=== PATIENT | female | born 1960 | race Caucasian/White ===

== ENCOUNTER 2018-01-29 10:49 | Outpatient (CLI) | payer MEDICAID, SELFPAY ==
[2018-01-29 12:46] LABS: TSH 1.85 uIU/mL (0.358-3.74)
== END 2018-01-29 11:09 ==
PROVIDERS: PCP Nurse Practitioner Family; Visit Provider Internal Medicine Endocrinology, Diabetes & Metabolism
DX: E05.90 Thyrotoxicosis, unspecified without thyrotoxic crisis or storm (principal)
CPT/HCPCS: 36415; 84443

== ENCOUNTER 2018-02-13 00:21 | Outpatient (CLI) | payer MEDICAID, SELFPAY ==
--- NOTE | 2018-02-13 09:15 | DI.MAMMO_ITS ---
SYMPTOM/DIAGNOSIS: SCREENING, Z12.31 MAMMOGRAM: Mammograms were interpreted according to the usual protocol including computer analysis with CAD system, tomosynthesis and C view imaging. Comparison with prior examinations. The patient is status post right breast biopsy. No suspicious masses or microcalcifications are seen. Breast density B. Skin and axilla are unremarkable. IMPRESSION: No evidence for malignancy. Yearly mammography is recommended. Category 1, breast density B. MQSA ASSESSMENT OF FINDINGS: Negative. Category 1. Patient will receive a letter notifying them of these results. BI-RADS category B. There are scattered areas of fibroglandular density.
== END 2018-02-13 00:41 ==
PROVIDERS: PCP Nurse Practitioner Family; Visit Provider Nurse Practitioner Family
DX: Z12.31 Encounter for screening mammogram for malignant neoplasm of breast (principal)
CPT/HCPCS: 77063; 77067

== ENCOUNTER 2018-03-27 13:49 | Outpatient (CLI) | payer MEDICAID, SELFPAY ==
[2018-03-27 15:08] LABS: TSH 1.61 uIU/mL (0.358-3.74)
== END 2018-03-27 14:09 ==
PROVIDERS: PCP Nurse Practitioner Family; Visit Provider Internal Medicine Endocrinology, Diabetes & Metabolism
DX: E05.90 Thyrotoxicosis, unspecified without thyrotoxic crisis or storm (principal)
CPT/HCPCS: 36415; 84443

== ENCOUNTER 2018-07-15 11:19 | Outpatient (CLI) | payer MEDICAID, SELFPAY ==
[2018-07-15 12:57] LABS: FREE T4 0.89 ng/dL (0.76-1.46); TSH 4.01 uIU/mL (0.358-3.74)
[2018-07-15 21:16] LABS: T3, Total 150 ng/dl (97-169)
[2018-07-20 16:27] LABS: Thyroid Stimulating Immunoglob 2.4 TSI index (<=1.3)
== END 2018-07-15 11:39 ==
PROVIDERS: PCP Nurse Practitioner Family; Visit Provider Internal Medicine Endocrinology, Diabetes & Metabolism
DX: E05.90 Thyrotoxicosis, unspecified without thyrotoxic crisis or storm (principal)
CPT/HCPCS: 36415; 84439; 84443; 84445; 84480

== ENCOUNTER 2018-08-10 13:51 | Outpatient (CLI) | payer MEDICAID, SELFPAY ==
[2018-08-10 15:34] LABS: FREE T4 0.79 ng/dL (0.76-1.46); TSH 1.85 uIU/mL (0.358-3.74)
[2018-08-11 18:07] LABS: T3, Total 119 ng/dl (97-169)
[2018-08-13 16:53] LABS: Thyroid Stimulating Immunoglob 2.6 TSI index (<=1.3)
== END 2018-08-10 14:11 ==
PROVIDERS: PCP Nurse Practitioner Family; Visit Provider Internal Medicine Endocrinology, Diabetes & Metabolism
DX: E05.90 Thyrotoxicosis, unspecified without thyrotoxic crisis or storm (principal)
CPT/HCPCS: 36415; 84439; 84443; 84445; 84480

== ENCOUNTER 2018-08-28 13:42 | Outpatient (CLI) | payer MEDICAID, SELFPAY ==
[2018-08-28 15:21] LABS: ALT 20 U/L (12-78); AST 20 U/L (15-37); FREE T4 0.86 ng/dL (0.76-1.46); TSH 2.18 uIU/mL (0.358-3.74)
[2018-08-28 21:56] LABS: T3, Total 130 ng/dl (97-169)
== END 2018-08-28 14:02 ==
PROVIDERS: PCP Nurse Practitioner Family; Visit Provider Internal Medicine Endocrinology, Diabetes & Metabolism
DX: T50.905A Adverse effect of unspecified drugs, medicaments and biological substances, initial encounter (principal); E05.90 Thyrotoxicosis, unspecified without thyrotoxic crisis or storm
CPT/HCPCS: 36415; 84439; 84443; 84450; 84460; 84480

== ENCOUNTER 2018-09-11 15:43 | Outpatient (CLI) | payer MEDICAID, SELFPAY ==
[2018-09-11 17:22] LABS: ALT 23 U/L (12-78); AST 17 U/L (15-37); FREE T4 0.87 ng/dL (0.76-1.46); TSH 2.06 uIU/mL (0.358-3.74)
[2018-09-13 17:30] LABS: T3, Total 113 ng/dl (97-169)
== END 2018-09-11 16:03 ==
PROVIDERS: PCP Nurse Practitioner Family; Visit Provider Internal Medicine Endocrinology, Diabetes & Metabolism
DX: E05.90 Thyrotoxicosis, unspecified without thyrotoxic crisis or storm (principal); T50.905A Adverse effect of unspecified drugs, medicaments and biological substances, initial encounter
CPT/HCPCS: 36415; 84439; 84443; 84450; 84460; 84480

== ENCOUNTER 2018-11-20 11:24 | Outpatient (REF) | payer MEDICAID, SELFPAY ==
--- NOTE | 2018-11-20 10:15 | PAPFT_PTH ---
PATIENT: Rosaura Blair LOC: [facility] U#:[id number] AGE/SX: 58/F ROOM: RE11/20/[address]: Rosemary Duran APRN : 1960 BED: DIS: 11/20/2018 SPEC #: [id number] RECD: 11/23/18 12:52 STATUS: RASHAWN REQ #: [id number] BIANCA: 11/20/18 10:[address]: Rosemary Duran DEPT: [facility] Cytology RECD BY: Christen Bee Tissues: 1 - CX/ENDOCX FOR PAP SMEARS Procedures: PAP THIN PREP/UVM Screening HPV DNA PROBE Comments: [id number]
== END 2018-11-20 11:44 ==
LOC: LBN 11:24
PROVIDERS: PCP Nurse Practitioner Family; Visit Provider Nurse Practitioner Family
DX: Z12.4 Encounter for screening for malignant neoplasm of cervix (principal); Z11.51 Encounter for screening for human papillomavirus (HPV)
CPT/HCPCS: 88142; 87624

== ENCOUNTER 2018-11-24 10:20 | Outpatient (CLI) | payer MEDICAID, SELFPAY ==
[2018-11-24 11:29] LABS: BUN 11 mg/dL (7-18); CREATININE 0.85 mg/dL (0.55-1.02); Calcium 8.8 mg/dL (8.5-10.1); Chloride 108 mmol/L (98-107); Glucose 97 mg/dL (70-100); Potassium 4.3 mmol/L (3.5-5.1); Sodium 144 mmol/L (136-145)
[2018-11-25 10:09] LABS: HIV-1/2 Ag & Ab Screen Negative (NEGAT)
[2018-11-25 10:15] LABS: Hepatitis C Ab w Rflx HCV PCR Negative (NEGAT)
== END 2018-11-24 10:40 ==
PROVIDERS: PCP Nurse Practitioner Family; Visit Provider Nurse Practitioner Family
DX: Z11.4 Encounter for screening for human immunodeficiency virus [HIV] (principal); Z13.1 Encounter for screening for diabetes mellitus; Z11.59 Encounter for screening for other viral diseases
CPT/HCPCS: 36415; 80048; 86803; 87389

== ENCOUNTER 2018-12-12 11:30 | Emergency (ER) | payer MEDICAID, SELFPAY ==
[2018-12-12 11:35] VITALS: BP 144/62; PULSE 56; RESP 16; TEMP 36.7; O2SAT 97
--- NOTE | 2018-12-12 11:35 | ED.GENADUL_ITS ---
Discharge Plan Disposition Patient Disposition: HOME Condition: Stable Discharge Details Chief Complaint: Urinary Clinical Impression: Cystitis Primary Care Provider: Rosemary Duran ED Provider: Bart Driver Home Meds and New Rx's Prescriptions: New nitrofurantoin monohyd/m-cryst [Macrobid] 100 mg capsule 100 mg PO BID Qty: 10 RF: 0 Continued trazodone 50 MG tablet 50 mg PO HS PRNQty: 90 RF: 3 cholecalciferol (vitamin D3) [Vitamin D3] 2,000 UNIT tablet 2,000 unit PO DAILY Qty: 90 RF: 3 atenolol 50 mg tablet 75 mg PO as directed Qty: 360 RF: 3 citalopram 20 mg tablet 20 mg PO DAILY Qty: 90 RF: 3 Discharge Instructions Instructions: Urinary Tract Infection in Women (ED) Medical Decision Making 58 yo female comes in with complaints of blood tinged urine and burning with urination since yesterday. Denies fevers, chills, vomit, abdominal pain or back pain and has no cva tenderness. She appears well systemically in no distress. Her symptoms and UA are consistent with uti, no findings on exam or hx to suggest pyelo or sepsis. Will tx with macrobid and return precautions given Differential Diagnosis uti, cystitis HPI General Mode of arrival: ambulatory . Date/Time Provider Initiated Documentation: 12/12/18 11:31 . Limitations to Documentation: no limitations . Information obtained by: patient . History of Present Illness 58 year old F presents to the emergency department with the chief complaint of bloody urine, described as moderate, Patient started experiencing this day(s) (1) and it has been constant. No relieving factors improve symptom(s), No exacerbating factors reported . Patient did receive the following treatments prior to arrival, none Related Data Home Medications Medication Instructions Recorded Confirmed cholecalciferol (vitamin D3) 2,000 unit PO DAILY #90 tab-cap 10/24/17 12/12/18 [Vitamin D3] trazodone 50 mg PO HS PRN #90 tab-cap 10/24/17 12/12/18 atenolol 50 mg tablet 75 mg PO as directed #360 tab 02/20/18 12/12/18 citalopram 20 mg tablet 20 mg PO DAILY #90 tab-cap 04/27/18 12/12/18 nitrofurantoin monohyd/m-cryst 100 mg PO BID #10 cap 12/12/18 [Macrobid] Previous Rx's Medication Instructions Recorded cholecalciferol (vitamin D3) 2,000 unit PO DAILY #90 tab-cap 10/24/17 [Vitamin D3] atenolol 50 mg tablet 75 mg PO as directed #360 tab 02/20/18 citalopram 20 mg tablet 20 mg PO DAILY #90 tab-cap 04/27/18 nitrofurantoin monohyd/m-cryst 100 mg PO BID #10 cap 12/12/18 [Macrobid] Allergies Allergy/AdvReac Type Severity Reaction Status Date / Time Penicillins Allergy Unknown swelling & Unverified 12/12/18 11:39 hives verapamil Allergy Unknown rash Unverified 12/12/18 11:39 Sulfa (Sulfonamide AdvReac Unknown sweating, Unverified 12/12/18 11:39 Antibiotics) vomiting Review of Systems Review of Systems All systems reviewed & are unremarkable except as noted in HPI and below Constitutional Denies chills, Denies fever(s) and Denies weakness ENT Denies change in voice Cardiovascular Denies chest pain and Denies dyspnea Respiratory Denies dyspnea Gastrointestinal Denies abdominal pain, Denies nausea and Denies vomiting Neurologic Denies weakness [facility] Medical History (Updated 11/20/18 @ 10:05 by Rosemary Duran NP) Abnormal Pap smear of cervix (Resolved) Bilateral carpal tunnel syndrome (Chronic 11/07/15) Depressive disorder (Chronic 07/30/12) Dyslipidemia (Chronic 08/09/15) Herpes (Chronic) Hyperthyroidism (Chronic 10/24/17) Insomnia (Chronic 08/08/11) EVIN (obstructive sleep apnea) (Chronic) Other specified cardiac dysrhythmias (Chronic 08/08/11) Restless legs (Chronic 11/10/12) Subclinical hypothyroidism (Resolved 12/09/12) Tobacco use disorder (Chronic 10/30/11) Vitamin D deficiency (Chronic 08/04/17) Surgical History (Updated 11/20/18 @ 09:52 by Rosemary Duran NP) Breast, Lumpectomy (Resolved) Carpal Tunnel Release, Right (Resolved) Colonoscopy - MAC (Resolved 11/27/16) Cone Biopsy (Resolved) Excision, Distal Clavicle (Resolved 07/12/15) Rotator Cuff Repair (Resolved 06/24/16) Family History Mother Diabetes Essential hypertension Hyperlipidemia Breast cancer Father Alzheimer disease Stroke Colon cancer Sister Thyroid disease Brother Hyperlipidemia Social History (Updated 11/20/18 @ 10:01 by Rosemary Duran NP) Smoking/Tobacco Use Status: Current-Occasional Tobacco Type: cigarettes Alcohol Intake: current Alcohol Intake frequency: holidays/special occasions only Drug use: Rarely Substance use type: marijuana Details: MJ Caregiver/Support person: No Household members: spouse Number of Children: 5 Communication Needs: None 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 Pets and animals: Yes Pets and animals: cat(s), dog(s), horse(s) and farm animals Sexually active: Yes Current gender identity: female What type of physical activity do you participate in: walking and other Details: Rides horses, farm activities Frequency: daily Seatbelt use: always Helmet use: Yes Drive intox or ride w/intox clamp truck driver: No Water heater temp set <120 deg: Yes Working smoke detector in home: Yes Fire extinguisher in home: Yes Carbon monox detector in home: Yes Firearms in home: Yes Firearms unloaded and locked: Yes Do you feel safe at home: Yes Do you feel safe in your relationship?: Yes Female Reproductive History Menstrual Menopause type: natural (LMP 06/2017) Exam Const General: no acute distress Orientation: alert HENMT Head: normal to inspection Ears: external ears normal General nose exam: external nose normal Mouth: moist mucous membranes Eyes General: appearance normal, both eyes and all related structures Neck Neck: normal visual inspection Resp Effort & Inspection: normal respiratory effort and able to speak in complete sentences Cardio Rate: regular rate Skin General skin exam: no rashes or lesions noted Neuro General: alert and oriented x3 Extrem General: normal to inspection Psych Mental Status: mental status grossly normal
[2018-12-12 11:39] LABS: Bilirubin Negative (Negative); Blood Large (Negative); Clarity Clear (Clear); Glucose Negative (Negative); Ketones Negative (Negative); Leukocyte Esterase Small (Negative); Nitrite Negative (Negative); Urobilinogen 0.2 EU/dL (Up TO 0.2); pH 6.5 (5-8)
[2018-12-12 11:47] LABS: Bacteria Few HPF (Negative); C & S Indicated? Yes; Casts Negative LPF (Negative); Crystals Negative HPF (Negative); Epithelial Cells Rare HPF (Negative); Mucus Trace (Negative); Other Cells Few Renal (Negative); WBC >50 HPF (0-5)
== END 2018-12-12 12:00 | disposition home or self-care (01) ==
PROVIDERS: Emergency Provider Emergency Medicine; PCP Nurse Practitioner Family
DX: N30.01 Acute cystitis with hematuria (principal)
CPT/HCPCS: 99283; 81003; 81015; 87086

== ENCOUNTER 2018-12-14 10:59 | Outpatient (CLI) | payer MEDICAID, SELFPAY ==
[2018-12-14 13:25] LABS: FREE T4 0.94 ng/dL (0.76-1.46); TSH 1.96 uIU/mL (0.36-3.74)
[2018-12-14 21:01] LABS: T3, Total 138 ng/dl (97-169)
== END 2018-12-14 11:19 ==
PROVIDERS: PCP Nurse Practitioner Family; Visit Provider Internal Medicine Endocrinology, Diabetes & Metabolism
DX: E05.00 Thyrotoxicosis with diffuse goiter without thyrotoxic crisis or storm (principal)
CPT/HCPCS: 36415; 84439; 84443; 84480

== ENCOUNTER 2019-02-15 00:54 | Outpatient (CLI) | payer MEDICAID, SELFPAY ==
--- NOTE | 2019-02-15 09:05 | DI.MAMMO_ITS ---
EXAM: MG MAMMO SCREENING CLINICAL HISTORY: screening Z12.31. TECHNIQUE: Bilateral full field digital CC and MLO mammographic images were obtained with 3D tomosyn thesis and utilizing computer aided detection (CAD). COMPARISON: There are multiple priors with the most recent from 02/08/2018. FINDINGS: Masses/Architectural Distortion: There is a focal asymmetric density in the upper central left breast seen on the mediolateral oblique view. This area should be further evaluated with a spot compressio n view and ultrasound. No other suspicious masses or microcalcifications are seen. Microcalcifications: No suspicious pleomorphic-type are seen. Breast Density - Category B - Scattered areas of fibroglandular density IMPRESSION: 1. Focal asymmetric density in the upper central left breast as seen on the mediolateral oblique view . Additional views are requested as described above. BI-RADS Cat 0 - Assessment Incomplete: Need additional imaging evaluation A negative radiographic report should not delay biopsy if a dominant or clinically suspicious mass is present. Up to ten percent of cancers are not identified on mammography. A negative report may reinforce clinical impression. Adenosis and dense breasts may obscure an underlying neoplasm. False positive reports average 6 to 10%. BI-RADS Cat 0 - Assessment Incomplete: Need additional imaging evaluation BI-RADS Cat 0 - Assessment Incomplete: Need additional imaging evaluation
== END 2019-02-15 01:14 ==
PROVIDERS: PCP Nurse Practitioner Family; Visit Provider Nurse Practitioner Family
DX: Z12.31 Encounter for screening mammogram for malignant neoplasm of breast (principal); R92.8 Other abnormal and inconclusive findings on diagnostic imaging of breast
CPT/HCPCS: 77063; 77067

== ENCOUNTER 2019-03-11 01:06 | Outpatient (CLI) | payer MEDICAID, SELFPAY ==
--- NOTE | 2019-03-11 14:52 | DI.MAMMO_ITS ---
EXAM: MG MAMMO SCREEN CALL BACK UNI AND US BREAST LT LIMITED CLINICAL HISTORY: F/U MAMMO/SPOTS, ASYMMETRIC DENSITY UPPER CENTRAL LT BREAST TECHNIQUE: Additional images are interpreted according to the usual protocol including tomosynthesis and 2D imaging. Ultrasound performed using standard protocol. COMPARISON: MG MAMMO SCREENING 02/15/19 FINDINGS: Additional mammographic views of the left breast and left breast ultrasound are interpreted conjuncti on. These examinations were obtained to evaluate questionable area of asymmetric density seen on rec ent screening mammogram in the left breast. Additional mammographic views fail to show a discrete ma ss. Breast ultrasound shows no evidence of a mass or cyst. IMPRESSION: No specific evidence of malignancy at this time. Follow-up unilateral left breast mammogram recommend ed in 6 months. Category 3, breast density category B. BI-RADS Cat 3 - 6 month - Probably Benign Finding: Recommend follow-up mammography in 6 months Breast Density - Category B - Scattered areas of fibroglandular density
== END 2019-03-11 01:26 ==
PROVIDERS: PCP Nurse Practitioner Family; Visit Provider Nurse Practitioner Family
DX: Z12.31 Encounter for screening mammogram for malignant neoplasm of breast (principal); R92.8 Other abnormal and inconclusive findings on diagnostic imaging of breast; N64.59 Other signs and symptoms in breast
CPT/HCPCS: 76642; 77063; 77067

== ENCOUNTER 2019-04-22 14:56 | Outpatient (CLI) | payer MEDICAID, SELFPAY ==
[2019-04-22 16:17] LABS: TSH 2.79 uIU/mL (0.36-3.74)
[2019-04-23 21:20] LABS: T3, Total 140 ng/dL (97-169)
== END 2019-04-22 15:16 ==
PROVIDERS: PCP Nurse Practitioner Family; Visit Provider Internal Medicine Endocrinology, Diabetes & Metabolism
DX: E05.00 Thyrotoxicosis with diffuse goiter without thyrotoxic crisis or storm (principal)
CPT/HCPCS: 36415; 84439; 84443; 84480

== ENCOUNTER 2019-11-09 00:27 | Outpatient (CLI) | payer MEDICAID, SELFPAY ==
--- NOTE | 2019-11-09 09:40 | DI.MAMMO_ITS ---
EXAM: MG MAMMO DIAGNOSTIC UNI CLINICAL HISTORY: abnormal mammo - 6 month follow up,R92.8 TECHNIQUE: Mammograms were interpreted according to the usual protocol including computer analysis w [employer] CAD system, tomosynthesis and C-view imaging. COMPARISON: FINDINGS: Today's left breast mammogram was obtained to follow questionable area of asymmetric density seen on prior mammogram of February 2019. Findings are less prominent on today's examination. No new mass or clumped microcalcification seen. IMPRESSION: No specific evidence of malignancy at this time. I would suggest that routine screening examinations resume with a bilateral mammogram in 6 months. BI-RADS Category 3 - 6 month - Probably Benign Finding: Recommend follow-up mammography in 6 months Breast Density - Category B - Scattered areas of fibroglandular density
== END 2019-11-09 00:47 ==
PROVIDERS: PCP Nurse Practitioner Family; Visit Provider Nurse Practitioner Family
DX: Z12.31 Encounter for screening mammogram for malignant neoplasm of breast (principal); R92.8 Other abnormal and inconclusive findings on diagnostic imaging of breast; N64.59 Other signs and symptoms in breast
CPT/HCPCS: 77061; 77065; G0279

== ENCOUNTER 2019-12-02 02:42 | Outpatient (CLI) | payer MEDICAID, SELFPAY ==
[2019-12-02 13:55] LABS: FREE T4 0.91 ng/dL (0.76-1.46); TSH 1.43 uIU/mL (0.36-3.74)
[2019-12-02 22:12] LABS: T3, Total 118 ng/dL (97-169)
[2019-12-07 15:01] LABS: Thyroid Stimulating Immunoglob 1.4 TSI index (<=1.3)
== END 2019-12-02 03:02 ==
PROVIDERS: PCP Nurse Practitioner Family; Visit Provider Internal Medicine Endocrinology, Diabetes & Metabolism
DX: E05.00 Thyrotoxicosis with diffuse goiter without thyrotoxic crisis or storm (principal)
CPT/HCPCS: 36415; 84439; 84443; 84445; 84480

== ENCOUNTER 2019-12-30 00:43 | Outpatient (CLI) | payer MEDICAID, SELFPAY ==
--- NOTE | 2019-12-30 06:30 | DI.US_ITS ---
EXAM: US UPPER EXTREMITY VENOUS RT CLINICAL HISTORY: assess soft tissue, blood vessels of RUE ecchy pain rt arm,m79.601,r58,?DVt. TECHNIQUE: Ultrasound examination of the right upper extremity venous system(s) is performed using g rayscale, color-flow, and spectral Doppler analysis. COMPARISON: No exams were available for comparison FINDINGS: The right internal jugular, axillary, subclavian, cephalic, basilic and brachial veins are patent wit hout evidence of thrombosis. IMPRESSION: No DVT. DATA REPOSITORY:
== END 2019-12-30 01:03 ==
PROVIDERS: PCP Nurse Practitioner Family; Visit Provider Nurse Practitioner Adult Health
DX: M79.601 Pain in right arm (principal)
CPT/HCPCS: 93971

== ENCOUNTER 2020-08-17 16:12 | Outpatient (CLI) | payer MEDICAID, SELFPAY ==
--- NOTE | 2020-08-17 16:00 | RT.EKG_ITS ---
APPROVED REPORT Exam: Resting ECG Patient Location: O HR:53 bpm ECG Measurements Heart Rate 53 AXIS NJ 66 P 0 QRSd 90 QRS 17 QT 439 T 29 QTc 412 Conclusion Sinus bradycardia...rate< 60
== END 2020-08-17 16:13 | disposition home or self-care (01) ==
LOC: DI.KIM 16:14
PROVIDERS: PCP Nurse Practitioner Family; Visit Provider Nurse Practitioner Family
DX: R07.9 Chest pain, unspecified (principal)
CPT/HCPCS: 93010

== ENCOUNTER 2020-08-22 00:48 | Outpatient (CLI) | payer MEDICAID, SELFPAY ==
--- NOTE | 2020-08-22 14:00 | ETT_ITS ---
APPROVED REPORT Exam: Exercise Treadmill Patient Location: Out-Patient Room/Bed: Stress Nurse: Pamela Morales RN Ordering Provider:KINGS GENAO, Contact Number: [phone] BMI: 27.45 Baseline Rhythm: Sinus Rhythm Comment: period of irregular rate Indications: ATYPICAL CHEST PAIN Medical History Medical History: Depression, EVIN, HLD, Hyperthyroidism, SVT, Tobacco use, Elevated blood pressure (re cent) Cardiac Medications: Aspirin, Atenolol Allergies: Sulf antibotics, Penicillins, Verapamil Cardiac Risk Factors: Hyperlipidemia, Smoking (former) Previous Cardiac Procedures: Ablation (1997) Pretest Chest Pain Characteristics: No chest pain Exercise History: Sedentary Physical Disabilities: None. Lung Sounds: Clear to auscultation Heart Sounds: Regular Stress Test Details Test: Exercise stress testing was performed using a Michael protocol. Rest Stress HR Resting HR Supine: 100 bpm Max Heart Rate (APMHR): 162 bpm Resting HR Standin bpm Target HR (85% APMHR): 137 bpm Max HR Achieved: 200 bpm % of APMHR: 123 Recovery HR: 67 bpm HR response to stress: Normal HR response to stress BP Resting BP Supine: 126/72 mmHg Resting BP Standin/80 mmHg Max BP: 192/64 mmHg Recovery BP: 134/70 mmHg BP response to stress: Normal blood pressure response to stress. ECG Resting ECG: Sinus Rhythm Ectopy: PACs Stress ECG: Sinus Tachycardia ST Change: No significant ST segment changes noted Arrhythmia: PAC Recovery ECG: Sinus Rhythm Recovery ST Change: No significant ST segment changes noted Recovery Arrhythmia: SVT, PVCs, PACs, PAC couplet Comment: 10 sec of SVT in recovery period, asymptomatic. Clinical Reason for Termination: Fatigue Stress Symptoms: General Fatigue Exercise duration: 12 min20 sec Highest Stage Reached: Stage 5: 5.0 mph at 18% grade. Exercise capacity: 13.71 METs Bell Treadmill Score: 11 Rate Pressure Product: [id number] Stress ECG Conclusion 1. The patient exercised for 12 minutes (14 METS). Exercise was stopped due to fatigue. 2. The patient no symptoms suggestive of ischemia. Heart rate and blood pressure augmented appropria tely. 3. There is no evidence of ischemia on ECG portion of the exam. Bell Treadmill Score is 11 which is Low risk. Stress Test Summary STAGE Time (mins) Speed (mph) Grade (%) HR BP SYMPTOMS METS Supine 100 126/72 Standing 65 132/80 1 3 1.7 10 87 154/70 4.6 2 6 2.5 12 104 162/68 7 3 9 3.4 14 119 176/68 10.2 4 12 4.2 16 143 12.9 1 min recovery 112 192/64 3 min recovery 77 170/68 6 min recovery 67 134/80 10 second episode of SVT within first minute of recovery period. Patient asymptomatic during this julián e. SVT resolved spontaneously.
== END 2020-08-22 01:08 ==
PROVIDERS: PCP Nurse Practitioner Family; Visit Provider Nurse Practitioner Family
DX: R07.89 Other chest pain (principal); E78.5 Hyperlipidemia, unspecified; Z87.891 Personal history of nicotine dependence; I47.1 Supraventricular tachycardia
CPT/HCPCS: 93017

== ENCOUNTER 2020-08-22 02:04 | Outpatient (CLI) | payer MEDICAID, SELFPAY ==
--- NOTE | 2020-08-22 12:38 | DI.MAMMO_ITS ---
EXAM: MG MAMMO SCREENING CLINICAL HISTORY: screening,z12.39 TECHNIQUE: Mammograms were interpreted according to the usual protocol including computer analysis w [employer] CAD system, tomosynthesis and C-view imaging. COMPARISON: FINDINGS: The breasts are of moderate density with fairly symmetrical distribution of fibroglandular tissue. N o dominant mass or clumped microcalcification is identified in either breast. The current examinatio n is compared with previous examinations including February 2019 and there has been no gross interval change in appearance in comparison with the prior studies. IMPRESSION: No specific evidence of malignancy at this time. Routine screening examinations are suggested at yea rly intervals due to the family history of breast carcinoma. BI-RADS Category 1 - Negative Breast Density - Category B - Scattered areas of fibroglandular density
--- NOTE | 2020-08-22 12:45 | DI.RAD_ITS ---
EXAM: XR CHEST 2V PA LATERAL CLINICAL HISTORY: sternal pain, r/o cardiopulm abnormality,r07.9 TECHNIQUE: 2D digital imaging was performed. COMPARISON: CR CHEST 2 VIEWS PA,LAT from 07/05/2017 FINDINGS: The heart is not enlarged. The lungs are clear and well expanded. No pleural effusion seen. Mediastin al contours appear intact. IMPRESSION: Normal chest. RADIATION DOSE DELIVERED: Total DLP
== END 2020-08-22 02:24 ==
PROVIDERS: PCP Nurse Practitioner Family; Visit Provider Nurse Practitioner Family
DX: R07.9 Chest pain, unspecified (principal); Z12.31 Encounter for screening mammogram for malignant neoplasm of breast; Z80.3 Family history of malignant neoplasm of breast
CPT/HCPCS: 77063; 77067; 71046

== ENCOUNTER 2020-08-22 04:11 | Outpatient (CLI) | payer MEDICAID, SELFPAY ==
[2020-08-22 09:40] LABS: Anion Gap 12.3 mmol/L (3-11); BUN 18 mg/dL (7-18); CO2 26.7 mmol/L (21.0-32.0); Calcium 8.8 mg/dL (8.5-10.1); Calculated LDL 149 mg/dL (<100); Chloride 107 mmol/L (98-107); Cholesterol 207 mg/dL (<200); Estimated GFR 56.95 (mL/min/1.73m2); Glucose 94 mg/dL (74-106); HDL Cholesterol 43 mg/dL (40-60); Potassium 4.8 mmol/L (3.5-5.1); Sodium 146 mmol/L (136-145); TSH 4.09 uIU/mL (0.36-3.74); Triglyceride 75 mg/dL (<150)
[2020-08-22 17:20] LABS: T3, Total 166 ng/dL (97-169)
[2020-08-29 15:11] LABS: Thyroid Stimulating Immunoglob <1.0 TSI index (<=1.3)
== END 2020-08-22 04:12 | disposition home or self-care (01) ==
LOC: LBO 04:11
PROVIDERS: PCP Nurse Practitioner Family; Visit Provider Nurse Practitioner Family
DX: E05.90 Thyrotoxicosis, unspecified without thyrotoxic crisis or storm (principal); E78.5 Hyperlipidemia, unspecified; Z13.1 Encounter for screening for diabetes mellitus
CPT/HCPCS: 36415; 80048; 80061; 84439; 84443; 84445; 84480

== ENCOUNTER 2021-03-14 04:34 | Outpatient (CLI) | payer MEDICAID, SELFPAY ==
[2021-03-14 08:59] LABS: TSH (W/Ref FT4) 3.21 uIU/mL (0.36-3.74)
== END 2021-03-14 04:35 | disposition home or self-care (01) ==
LOC: LBO 04:34
PROVIDERS: PCP Nurse Practitioner Family; Visit Provider Nurse Practitioner Family
DX: L85.3 Xerosis cutis (principal); L98.8 Other specified disorders of the skin and subcutaneous tissue; Z86.39 Personal history of other endocrine, nutritional and metabolic disease
CPT/HCPCS: 36415; 84443

== ENCOUNTER 2021-10-02 03:30 | Outpatient (CLI) | payer MEDICAID, SELFPAY ==
--- NOTE | 2021-11-05 14:59 | ZIOP_ITS ---
Date of service: 11/05/21 Time of Service: 15:00 14 Day [employer] Referring Provider:: Thiago Indications:: Palps Note: This is a 14-day monitor ordered for the indication of palpitations ? The patient was in normal sinus rhythm for the during the recording with an average heart rate of 55 bpm. ? There were rare PACs and rare PVCs. ? There were 25 brief runs of SVT with the longest lasting 11 beats. None of these were reported as symptomatic. ? There were no episodes of atrial fibrillation, no pauses greater than 3 seconds and no evidence of high degree heart block. ? There were 6 patient triggered events 4 of which were associated with PACs and the others with sinus rhythm
== END 2021-10-02 03:31 | disposition home or self-care (01) ==
LOC: RT 03:30
PROVIDERS: PCP Nurse Practitioner Family; Visit Provider Internal Medicine Cardiovascular Disease
DX: I47.1 Supraventricular tachycardia (principal); R00.2 Palpitations
CPT/HCPCS: 93246

== ENCOUNTER 2021-10-10 04:23 | Outpatient (CLI) | payer MEDICAID, SELFPAY ==
[2021-10-10 10:26] LABS: Anion Gap 10.7 mmol/L (3-11); BUN 16 mg/dL (7-18); CO2 28.3 mmol/L (21.0-32.0); CREATININE 1.1 mg/dL (0.55-1.02); Calcium 8.9 mg/dL (8.5-10.1); Chloride 106 mmol/L (98-107); Estimated GFR 50.84 (mL/min/1.73m2); FREE T4 0.91 ng/dL (0.76-1.46); Glucose 93 mg/dL (74-106); Potassium 4.8 mmol/L (3.5-5.1); Sodium 145 mmol/L (136-145); TSH 2.38 uIU/mL (0.36-3.74)
== END 2021-10-10 04:24 | disposition home or self-care (01) ==
LOC: LBO 04:23
PROVIDERS: PCP Nurse Practitioner Family; Visit Provider Nurse Practitioner Family
DX: Z86.39 Personal history of other endocrine, nutritional and metabolic disease (principal); Z13.1 Encounter for screening for diabetes mellitus
CPT/HCPCS: 36415; 80048; 84439; 84443

== ENCOUNTER → 2021-10-17 03:14 | Outpatient (CLI) | payer MEDICAID, SELFPAY ==
--- NOTE | 2021-10-17 12:32 | DI.MAMMO_ITS ---
Exam(s) MAMMO SCREENING EXAM: MAMMO SCREENING CLINICAL HISTORY: screening,z12.39 TECHNIQUE: Mammograms were interpreted according to the usual protocol including computer analysis w [employer] CAD system, tomosynthesis and C-view imaging. COMPARISON: FINDINGS: The breasts are of moderate density with fairly symmetrical distribution of fibroglandular tissue. N o dominant mass or clumped microcalcification is identified in either breast. Current examination is compared with previous examinations including August 2020 and there has been no gross interval change in appearance in comparison with the prior studies. IMPRESSION: No specific evidence of malignancy at this time. Routine screening examinations are suggested at ye demarco intervals due to the family history of breast carcinoma. BI-RADS Category 1 - Negative Density Breast Density - Category B - Scattered areas of fibroglandular density
== END ==
PROVIDERS: PCP Nurse Practitioner Family; Visit Provider Nurse Practitioner Family
DX: Z12.31 Encounter for screening mammogram for malignant neoplasm of breast (principal); Z80.3 Family history of malignant neoplasm of breast
CPT/HCPCS: 77063; 77067

== ENCOUNTER 2021-10-17 04:06 | Outpatient (CLI) | payer MEDICAID, SELFPAY ==
[2021-10-17 13:43] LABS: Bilirubin Negative (Negative); Blood Small (Negative); Clarity Clear (Clear); Glucose Negative (Negative); Ketones Negative (Negative); Leukocyte Esterase Negative (Negative); Nitrite Negative (Negative); Specific Gravity >= 1.030 (1.005-1.025); Urobilinogen 0.2 EU/dL (Up TO 0.2)
[2021-10-17 13:55] LABS: Bacteria Few HPF (Negative); C & S Indicated? No/Sq. Contamination; Crystals Negative HPF (Negative); Epithelial Cells Moderate HPF (Negative); Mucus Trace (Negative); RBC 0-2 HPF (0-2); WBC 0-2 HPF (0-5)
[2021-10-17 17:30] LABS: Hemoglobin A1C 5.6 % (<5.7)
== END 2021-10-17 04:07 | disposition home or self-care (01) ==
LOC: LBO 04:06
PROVIDERS: PCP Nurse Practitioner Family; Visit Provider Nurse Practitioner
DX: E11.9 Type 2 diabetes mellitus without complications (principal); R94.4 Abnormal results of kidney function studies; R82.998 Other abnormal findings in urine
CPT/HCPCS: 36415; 81003; 81015; 83036

== ENCOUNTER → 2021-10-24 02:14 | Outpatient (CLI) | payer MEDICAID, SELFPAY ==
--- NOTE | 2021-10-24 07:00 | DI.CT_ITS ---
Exam(s) CT ABDOMEN PELVIS WO EXAM: CT ABDOMEN PELVIS WO CLINICAL HISTORY: decreasing GFR (50), microscopic hematuria,r31.29,r94.4. TECHNIQUE: Imaging Protocol: Axial computed tomography images with coronal and sagittal reformatted images were created and reviewed CONTRAST MATERIAL: Intravenous: none Oral: None COMPARISON: No exams were available for comparison FINDINGS: VISUALIZED LUNG BASES: Small 3 millimeter pleural base nodule the lateral basal segment left lower lo be. No pleural effusions. ABDOMEN: There is no ascites. LIVER: There are no obvious focal hepatic lesions evident of this noninfused study. GALLBLADDER/BILIARY: No obvious gallbladder pathology. CBD is not dilated. PANCREAS: No evidence of pancreatic mass nor dilatation of the pancreatic duct. SPLEEN: Spleen is not enlarged. No obvious intrasplenic lesions. ADRENALS: There are no significant adrenal masses. KIDNEYS:Right kidney unremarkable. Subtle area of hypodensity in inferior pole of the left kidney is noted measuring 1.2 x 1.2 cm, difficult to assess without IV contrast but probably a cyst. Should b e verified ultrasound no calculi. No hydronephrosis.. ABDOMINAL AORTA: Abdominal aorta is not enlarged. LYMPH NODES: There is no retroperitoneal nor paraaortic adenopathy. ABDOMINAL WALL: No evidence of significant anterior abdominal wall nor inguinal hernia. GI: There is no evidence of bowel obstruction, free air, nor abscess. PELVIS: LYMPH NODES: There is no intrapelvic nor inguinal adenopathy. GI: No evidence of appendicitis.No evidence of sigmoid diverticulitis. URINARY BLADDER: No calculi nor obvious masses evident REPRODUCTIVE: Uterus and adnexal regions appear. There is cul-de-sac OSSEOUS: No significant osseous lesions. Increased density on the iliac side of the sacroiliac joints may indicate sacroiliitis. Is no ankylo sis of the SI joints. Advanced degenerative changes are noted in the facet joints of the lower 2 lev els in the lumbar spine. No listhesis. IMPRESSION: 1. There is a 1.2 x 1.2 cm hypodensity in the upper pole the left kidney which is probably a cyst but should be verified with ultrasound given that this is a noninfused study. There are no renal calcul i nor hydronephrosis. 2. No acute findings in the abdomen and pelvis. 3. No ascites. RADIATION DOSE DELIVERED: 754.77mGy.cm Total DLP DATA REPOSITORY: All CT scans at this facility are submitted to the National Radiology Data Registry (NRDR) Dose Index Registry (DIR) with the [employer] (ACR). RADIATION OPTIMIZATION: All CT scans at this facility use at least one of these dose optimization te chniques: automated exposure control; mA and/or kV adjustment per patient size (includes targeted exa ms where dose is matched to clinical indication); or iterative reconstruction.
== END ==
PROVIDERS: PCP Nurse Practitioner Family; Visit Provider Nurse Practitioner
DX: R31.29 Other microscopic hematuria (principal); R94.4 Abnormal results of kidney function studies; R93.422 Abnormal radiologic findings on diagnostic imaging of left kidney
CPT/HCPCS: 74176

== ENCOUNTER → 2021-11-02 00:45 | Outpatient (CLI) | payer MEDICAID, SELFPAY ==
--- NOTE | 2021-11-02 07:45 | DI.US_ITS ---
Exam(s) US RENAL EXAM: US RENAL CLINICAL HISTORY: decreased GFR, ? cyst on CT,abnl renal finding,r39.9 TECHNIQUE: Ultrasound performed using standard protocol. COMPARISON: US US UPPER EXTREMITY VENOUS RT from 12/30/2019 FINDINGS: Kidneys are normal in size and shape. There is no evidence of a renal mass or hydronephrosis. There is an incidental 15 millimeter in diameter simple cyst of the lower pole of the left kidney. There is no nephrolithiasis. Ureteral jets are noted bilaterally. Pre and postvoid urinary bladder volume measurements are 148 cc and 0 cc respectively. No focal abno rmality seen involving the urinary bladder. IMPRESSION: Negative renal ultrasound. DATA REPOSITORY:
== END ==
PROVIDERS: PCP Nurse Practitioner Family; Visit Provider Nurse Practitioner
DX: N28.1 Cyst of kidney, acquired; R93.89 Abnormal findings on diagnostic imaging of other specified body structures
CPT/HCPCS: 76770

== ENCOUNTER 2021-11-02 01:47 | Outpatient (CLI) | payer MEDICAID, SELFPAY ==
[2021-11-02 15:10] LABS: Anion Gap 7.9 mmol/L (3-11); BUN 17 mg/dL (7-18); CO2 27.1 mmol/L (21.0-32.0); Calcium 8.5 mg/dL (8.5-10.1); Chloride 106 mmol/L (98-107); Estimated GFR 56.75 (mL/min/1.73m2); Glucose 111 mg/dL (74-106); Potassium 3.9 mmol/L (3.5-5.1); Sodium 141 mmol/L (136-145)
== END 2021-11-02 01:48 | disposition home or self-care (01) ==
LOC: LBO 01:47
PROVIDERS: PCP Nurse Practitioner Family; Visit Provider Nurse Practitioner
DX: R94.4 Abnormal results of kidney function studies (principal)
CPT/HCPCS: 36415; 80048

== ENCOUNTER 2021-11-24 05:23 | Emergency (ER) | payer MEDICAID, SELFPAY ==
[2021-11-24 05:28] VITALS: BP 131/85; PULSE 58; RESP 18; TEMP 36; O2SAT 99
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
[2021-11-24] MEDS: predniSONE 20 MG TAB 60 MG PO (05:52)
[2021-11-24] MEDS: Doxycycline Hyclate 100 MG CAP PO (05:52)
== END 2021-11-24 06:08 | disposition home or self-care (01) ==
PROVIDERS: Emergency Provider Emergency Medicine; PCP Nurse Practitioner Family
DX: L98.8 Other specified disorders of the skin and subcutaneous tissue (principal)
CPT/HCPCS: 99283; J7512

== ENCOUNTER → 2021-12-05 00:51 | Outpatient (CLI) | payer MEDICAID, SELFPAY ==
--- NOTE | 2021-12-05 08:15 | DI.RAD_ITS ---
Exam(s) XR FOOT RT COMPLETE EXAM: XR FOOT RT COMPLETE CLINICAL HISTORY: horse stepped on right foot 48 h ago,2ND AND 3RD TOEPAIN, M79.676,T14.90XA. TECHNIQUE: 2D digital imaging was performed. Three views. COMPARISON: No exams were available for comparison FINDINGS: BONES: No acute fracture is present. No bony destructive lesion is seen. JOINTS: No dislocation present. SOFT TISSUE: Normal. IMPRESSION: Unremarkable radiographs of the right foot. DATA REPOSITORY: RADIATION DOSE DELIVERED:
== END ==
PROVIDERS: PCP Nurse Practitioner Family; Visit Provider Nurse Practitioner
DX: S99.921A Unspecified injury of right foot, initial encounter (principal); W55.19XA Other contact with horse, initial encounter; Y99.8 Other external cause status
CPT/HCPCS: 73630

== ENCOUNTER 2022-01-30 16:13 | Outpatient (REF) | payer MEDICAID, SELFPAY ==
[2022-01-30 20:54] LABS: Bilirubin Negative (Negative); Blood Small (Negative); Clarity Clear (Clear); Glucose Negative (Negative); Ketones Negative (Negative); Leukocyte Esterase Negative (Negative); Nitrite Negative (Negative); Specific Gravity 1.025 (1.005-1.025); Urobilinogen 0.2 EU/dL (Up TO 0.2)
[2022-01-30 21:16] LABS: Bacteria Rare HPF (Negative); C & S Indicated? No; Casts Negative LPF (Negative); Crystals Negative HPF (Negative); Epithelial Cells Negative HPF (Negative); Mucus Negative (Negative); Other Cells Negative (Negative); RBC 0-2 HPF (0-2); WBC 0-2 HPF (0-5)
[2022-01-31 18:30] LABS: Albumin ug/mg Crea 5 (<30); Albumin, Ur 0.7 mg/dL (See Note); Creatinine, Ur 131.3 mg/dL (See Note)
== END 2022-01-30 16:14 | disposition home or self-care (01) ==
LOC: LBN 16:13
PROVIDERS: PCP Nurse Practitioner Family; Visit Provider Nurse Practitioner Family
DX: R82.998 Other abnormal findings in urine; N18.9 Chronic kidney disease, unspecified
CPT/HCPCS: 81003; 81015; 82043; 82570

== ENCOUNTER 2022-05-24 02:44 | Outpatient (CLI) | payer MEDICAID, SELFPAY ==
[2022-05-24 13:29] LABS: TSH (W/Ref FT4) 3.47 uIU/mL (0.36-3.74)
== END 2022-05-24 02:45 | disposition home or self-care (01) ==
LOC: LBO 02:44
PROVIDERS: PCP Nurse Practitioner Family; Visit Provider Nurse Practitioner Family
DX: Z86.39 Personal history of other endocrine, nutritional and metabolic disease (principal)
CPT/HCPCS: 36415; 84443

== ENCOUNTER 2022-08-08 04:20 | Outpatient (CLI) | payer MEDICAID, SELFPAY ==
[2022-08-08 11:39] LABS: Abs Immature Grans 0.03 10^3/uL (0.0-0.06); Absolute Basophil Count 0.07 10^3/uL (0.0-0.2); Absolute Eosinophil Count 0.23 10^3/uL (0.0-0.7); Absolute Lymphocyte Count 2.35 10^3/uL (1.2-3.4); Absolute Monocyte Count 0.41 10^3/uL (0.1-0.8); Absolute Neutrophil Count 2.82 10^3/uL (1.2-6.7); Basophils % 1.2; Eosinophils % 3.9; HCT 42.3 % (36.0-46.0); HGB 13.9 g/dL (11.2-15.7); Immature Grans % 0.5; Lymphocytes % 39.8; MCH 29.6 pg (27.0-33.0); MCHC 32.9 % (32.0-36.0); MCV 90 fL (80-95); MPV 9.2 fL (8.0-11.0); Monocytes % 6.9; Neutrophils % 47.7; Platelet Count 272 10^3/uL (130-400); RDW 11.9 % (11.7-14.6); RDW-SD 39.5 fL; WBC 5.91 10^3/uL (4.4-10.8)
[2022-08-08 12:50] LABS: ALT 21 U/L (14-59); AST 20 U/L (15-37); Alkaline Phosphatase 80 U/L (46-116); BUN 16 mg/dL (7-18); Calcium 8.9 mg/dL (8.5-10.1); Chloride 109 mmol/L (98-107); Estimated GFR 64.49 (mL/min/1.73m2); Glucose 92 mg/dL (74-106); Potassium 4.5 mmol/L (3.5-5.1); Sodium 145 mmol/L (136-145); TSH (W/Ref FT4) 5.75 uIU/mL (0.36-3.74)
[2022-08-08 13:21] LABS: FREE T4 0.82 ng/dL (0.76-1.46)
== END 2022-08-08 04:21 | disposition home or self-care (01) ==
LOC: LBO 04:20
PROVIDERS: PCP Nurse Practitioner Family; Visit Provider Nurse Practitioner Family
DX: Z13.1 Encounter for screening for diabetes mellitus (principal); Z51.81 Encounter for therapeutic drug level monitoring; N18.9 Chronic kidney disease, unspecified; Z86.39 Personal history of other endocrine, nutritional and metabolic disease
CPT/HCPCS: 36415; 80053; 84439; 84443; 85025

== ENCOUNTER 2022-08-19 08:26 | Day surgery (SDC) | payer MEDICAID, SELFPAY ==
--- NOTE | 2022-08-18 19:46 | W.PM.DSUDISC ---
Date of service: 08/19/22 Time of Service: 09:48 Discharge Plan Disposition Patient Disposition: Home Condition: Good Discharge Details Reason For Visit: Colonoscopy Attending Provider: Robe Goodson Primary Care Provider: Rosemary Duran Home Meds and New Rx's Prescriptions: Continued valacyclovir 500 mg tablet 500 mg PO BID 3 Days Qty: 18 2RF aspirin 81 mg tablet,delayed release (DR/EC) 81 mg PO DAILY lorazepam [Ativan] 0.5 mg tablet 0.5 - 1 mg PO BID PRN (Reason: anxiety) Qty: 10 0RF cholecalciferol (vitamin D3) [Vitamin D3] 50 mcg (2,000 unit) tablet 2,000 unit PO DAILY Qty: 90 3RF atenolol 50 mg tablet 50 mg PO as directed Patient Comments: Pt recently takes 50mg in AM and 25mg in PM. Rx Instructions: 75 mg daily for SVT Can take 1-4 tabs (50-200 mg) for heart rhythm (SVT) Discontinued bisacodyl [Dulcolax (bisacodyl)] 5 mg tablet,delayed release (DR/EC) 5 mg PO ONCE Qty: 4 0RF Rx Instructions: Take according to provider's instructions for colonoscopy prep. polyethylene glycol 3350 17 gram/dose powder 17 g PO ONCE Qty: 238 0RF Rx Instructions: To be taken as directed by prescriber's office for colonoscopy prep. Discharge Instructions Additional Instructions: 1. If tolerated, consume a soft, low fiber diet for 1-2 days. [address] Do not drive, drink alcohol, operate machinery, make critical decisions, or do activities that require coordination or balance for 24 hours. 3. Because air was put into your colon during the procedure, expelling air from your rectum (passing gas or farting) is normal. 4. You may not have a bowel movement for 1-3 days because of the colonoscopy prep. This is normal. 5. Go directly to the emergency room if you notice any of the following: Develop chills (warm to touch), or if you have a thermometer and your temperature is above 101 Difficulty breathing or difficultly swallowing Persistent vomiting Severe abdominal pain, other than gas cramps Severe chest pain Black, tarry stools Any bleeding ? exceeding one tablespoon 6. Call your physician if the site where your intravenous was started becomes red, swollen, painful, and warm to touch. 7. Your physician has reviewed your pre-procedure medications. Please continue to take those medications as previously ordered. You will be given specific information/education regarding any changes to your medications before leaving. Activity:: Activity as Tolerated Diet:: As Tolerated Discharge Orders Discharge Orders: Discharge Order (Routine); Ordered 08/18/22 Ordered By: Robe Goodson DS: Diagnosis Discharge Diagnosis (1) Screening for colon cancer: Status: Acute Asessment and Plan: Follow-up on polypectomy results
--- NOTE | 2022-08-18 19:48 | W.COLOREPORT ---
Date of service: 08/19/22 Time of Service: 09:49 Colonoscopy Report Date of procedure: 08/19/22 Pre-op diagnosis general: Screening colonoscopy Post-op diagnosis procedure note: other (Colon polyp) Procedure: Colonoscopy with polypectomy Surgeon: Robe Goodson Anesthesia Type: General:No Airway Estimated blood loss (mL): 5 Pathology: other (About 20 cm) Complications: None Disposition: same day Indications: Rosaura is a 62 year old women who presents for a screening colonoscopy. She has a first degree relative with colon cancer. Prep: Miralax/Dulcolax Procedure Start Time: 09:16 Procedure End Time: 09:37 Retraction Time: 10 Findings: Colon polyp at 20 cm Procedure Description: After the induction of monitored anesthetic care, and with the patient in left lateral decubitus position, I began by performing an external anorectal exam.? Perineum and skin were normal, as was the anal verge.? There was no evidence of external hemorrhoids.? Next, I performed a digital rectal exam.? I did not appreciate any abnormal findings.? Next, I advanced a colonoscope into the rectal vault.? I performed retroflexion.? This was normal.? Using insufflation, I then advanced the colonoscope beyond the rectal folds and into the sigmoid colon before advancing towards the cecum.? The quality of the prep was excellent.? The scope was noted to be in the cecum by identification of the ileocecal valve and appendiceal orifice.? I then began withdrawing the colonoscope using repeated irrigation as necessary for full evaluation of the colonic mucosa. Around 20 cm from the anal verge I identified a 0.25 cm polyp. ?It appeared sessile in character. ?I was able to remove this with a cold forcep polypectomy. ?I examined the site, and there was minimal bleeding. ?Once this was completed, I continued to withdraw the scope and examine the remainder of the colonic mucosa. ?Once the scope was withdrawn to the level of the rectum, great care was taken to examine portions of the rectal folds.? Finally, the scope was withdrawn and the patient was brought to the same-day surgery recovery unit as the anesthetic wore off. ?The findings and instructions were shared with the patient prior to discharge.
[2022-08-19 08:38] VITALS: BP 137/74; PULSE 45; RESP 16; TEMP 36.1; O2SAT 100
--- NOTE | 2022-08-19 08:56 | W.ANESPRE ---
General Info Date of Service Date Performed: 08/19/22 Height: 5 ft 4 in Weight: 67.2 kg Body Mass Index (BMI): 25.4 Surgical Procedure: Operation Date: 08/19/22 09:35 Proposed Procedure Side Surgeon chinyere Goodson MD Meds Allergies and Home Medications Allergies Allergy/AdvReac Type Severity Reaction Status Date / Time Penicillins Allergy Unknown swelling & Verified 08/19/22 08:35 hives verapamil Allergy Unknown rash Verified 08/19/22 08:35 Sulfa (Sulfonamide AdvReac Unknown sweating, Verified 08/19/22 08:35 Antibiotics) vomiting Home Medication Medication Instructions Recorded aspirin 81 mg tablet,delayed 81 mg PO DAILY 08/17/20 release valacyclovir 500 mg tablet 500 mg PO BID 3 days #18 tabs 11/28/21 lorazepam 0.5 mg tablet (Ativan) 0.5 - 1 mg PO BID PRN anxiety #10 05/22/22 tabs atenolol 50 mg tablet 50 mg PO as directed 05/24/22 cholecalciferol (vitamin D3) 50 2,000 unit PO DAILY #90 tab-caps 08/01/22 mcg (2,000 unit) tablet (Vitamin D3) Current Visit Medications: Current Medications Generic Name Dose Route Start Last Admin Trade Name Freq PRN Reason Stop Dose Admin Hyoscyamine Sulfate 0.125 mg 08/18/22 19:49 Hyoscyamine 0.125 Mg Sl/Oral/Chew SL DIRECTED PRN Ringer's Solution 1,000 mls @ 80 mls/hr 08/19/22 06:00 IV 08/19/22 23:59 [facility] IV Miscellaneous Supplies 1 each 08/19/22 06:00 Iv Access IV 08/19/22 23:59 DIRECTED [facility] Ondansetron HCl 4 mg 08/18/22 19:49 Ondansetron 4 Mg/2 Ml Vial IVP Q4H PRN PRN Nausea / Vomiting Sodium Chloride 0 ml 08/19/22 06:00 Normal Saline Flush 10 Ml Syr IV 08/19/22 23:59 PRN PRN Sodium Chloride 0 ml 08/19/22 06:00 Normal Saline 10 Ml Vial IJ 08/19/22 23:59 DIRECTED PRN Sterile Water 0 ml 08/19/22 06:00 Water,Injection,Sterile 10 Ml Vial IJ 08/19/22 23:59 DIRECTED PRN PFSH Active Problems Active Problems: Problem Status Onset Code Screening for colon cancer Z12.11 EVIN (obstructive sleep apnea) Vitamin D deficiency 08/04/17 E55.9 Restless legs 11/10/12 G25.81 Insomnia 08/08/11 G47.00 Herpes B00.9 Depressive disorder 07/30/12 F32.9 Bilateral carpal tunnel syndrome 11/07/15 G56.03 Hyperlipidemia, unspecified E78.5 SVT (supraventricular tachycardia) I47.1 History of Graves' disease Z86.39 Keratosis seborrheica L82.1 Palpitations R00.2 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 CKD (chronic kidney disease) N18.9 Family history of colon cancer Z80.0 Medical History Medical History Abnormal Pap smear of cervix s/p cone bx Graves disease S/p tx with methimazole; in remission since 06/2018; last seen by [facility] [place] 09/06/2020 with recommendation to monitor annual TSH and fT4 (start tx if TSH exceeds 6 or fT4 becomes low) SARS-CoV-2 positive (01/31/22) Subclinical hypothyroidism (12/09/12) Tobacco use disorder (10/30/11) QUIT 1988 Surgical History Surgical History Breast, Lumpectomy R, benign Carpal Tunnel Release, Right Colonoscopy - MAC (11/27/16) Cone Biopsy . Abnormal Pap smear Excision, Distal Clavicle (07/12/15) Right Dr. Mendez H/O cardiac radiofrequency ablation 1998 Rotator Cuff Repair (06/24/16) Dr Andrea Fong rotator Tobacco Smoking/Tobacco Use Status: Former Tobacco Use Passive smoking exposure: Yes Alcohol Alcohol Intake: current Alcohol intake frequency: a few times a month Substance Use Substance use: Occasionally Substance use type: marijuana Details: marijuana use 08/18/22 at 2000 Vital Signs and Lab Results Vital Signs Most Recent Vital Signs in EMR: Most Recent Vital Signs Temp Pulse Resp BP Pulse Ox 36.1 C L 45 L 16 137/74 100 08/19/22 08:38 08/19/22 08:38 08/19/22 08:38 08/19/22 08:38 08/19/22 08:38 Lab Results Blood Type / Crossmatch: No Data to Display Complete Blood Count: White Blood Count 5.91 10^3/uL (4.4-10.8) 08/08/22 11:32 Red Blood Count 4.70 10^6/uL (3.93-5.22) 08/08/22 11:32 Hemoglobin 13.9 g/dL (11.2-15.7) 08/08/22 11:32 Hematocrit 42.3 % (36.0-46.0) 08/08/22 11:32 Platelet Count 272 10^3/uL (130-400) 08/08/22 11:32 Complete Metabolic Panel: Sodium 145 mmol/L (136-145) 08/08/22 11:32 Potassium 4.5 mmol/L (3.5-5.1) 08/08/22 11:32 Chloride 109 mmol/L (98-107) H 08/08/22 11:32 Carbon Dioxide 31.0 mmol/L (21.0-32.0) 08/08/22 11:32 BUN 16 mg/dL (7-18) 08/08/22 11:32 Creatinine 1.0 mg/dL (0.55-1.02) 08/08/22 11:32 Est GFR (CKD-EPI 2020) 64.49 (mL/min/1.73m2) 08/08/22 11:32 Calcium 8.9 mg/dL (8.5-10.1) 08/08/22 11:32 Albumin 4.0 g/dL (3.4-5.0) 08/08/22 11:32 Glucose 92 mg/dL (74-106) 08/08/22 11:32 Liver Function Panel: Alanine Aminotransferase (ALT/SGPT) 21 U/L (14-59) 08/08/22 11:32 Aspartate Amino Transf (AST/SGOT) 20 U/L (15-37) 08/08/22 11:32 Coagulation Panel: No Data to Display Cardiac Panel: No Data to Display Arterial Blood Gas: No Data to Display Venous Blood Gas: No Data to Display Pancreas Panel: No Data to Display Thyroid Panel: Thyroid Stimulating Hormone (TSH) 5.75 uIU/mL (0.36-3.74) H 08/08/22 11:32 Infectious Disease: No Data to Display Blood Cultures: No Data to Display Toxicology Panel: No Data to Display Imaging and Studies Imaging and Studies Study information below may be from another EMR and interpreted by another provider. Please see original notes in EMR for more complete details. EKG Summary: Conclusion Sinus bradycardia...rate< 60 08/17/20 Stress Test Summary: Stress ECG Conclusion 1. The patient exercised for 12 minutes (14 METS). Exercise was stopped due to fatigue. 2. The patient no symptoms suggestive of ischemia. Heart rate and blood pressure augmented appropriately. 3. There is no evidence of ischemia on ECG portion of the exam. Bell Treadmill Score is 11 which is Low risk. 08/22/20 Anesthesia Assessment and Plan Anesthesia History Personal History: No History of Anesthesia Complications Family History: No Family History of Anesthesia Complications Exercise Tolerance Exercise Tolerance: Metabolic Equivalents>4 Pertinent Negatives Pertinent Negatives: No Symptoms of GERD, No Major Cardiovascular Symptoms or Complaints, No Major Pulmonary Symptoms or Complaints, No History of CVA/TIA and Other (hx of heart palpitations, stress test negative 2020) Cardiac & Pulmonary Exam Cardiac Exam: Normal S1/S2 Heart Sounds Pulmonary Exam: Clear Bilateral Breath Sounds Implantable Cardiac Device Does patient have a Pacemaker or an ICD?: No Airway Exam Known Difficult Airway: No Mallampati Class: 1 Mouth Opening: Normal (> 3cm) Thyromental Distance: Greater than 3 cm Neck Range of Motion: Full ROM Neck Circumference: Normal Teeth Condition: Normal Dentition ASA Classification ASA Score: ASA 2 Emergency Case?: No NPO Status NPO Status: NPO Clears >2 hours, Solids >8 hours Anesthesia Plan Resuscitation Status: Full Code Anesthesia Technique: General Anesthesia Airway Planned: Natural Airway Monitors Used: Standard Monitors
[2022-08-19 09:08] VITALS: BMI 25.4
[2022-08-19] MEDS: Lactated Ringers 1,000 ML 80 ML IV (09:11)
--- NOTE | 2022-08-19 09:34 | BOWEL_PTH ---
PATIENT: Rosaura Blair LOC: [facility] U#:[id number] AGE/SX: 62/F ROOM: RE08/19/[address]: Robe Goodson MD : 1960 BED: DIS: 08/19/2022 SPEC #: [id number] RECD: 08/19/22 12:54 STATUS: RASHAWN RE #: [id number] BIANCA: 08/19/22 09:[address]: Robe Goodson DEPT: Surgical Specimen RECD BY: Christen Bee ENTERED: 08/19/22 12:56 SP TYPE: Bowel OTHR DR: Rosemary Duran APRN Tissues: 1 - BIOPSY BOWEL Procedures: GROSS AND MICRO LEVEL 4 Comments: [id number]
[2022-08-19 09:42] VITALS: BP 119/60; PULSE 51; RESP 16; TEMP 37.1; O2SAT 97
--- NOTE | 2022-08-19 10:06 | W.ANESPOSTOP ---
Postoperative Evaluation Date, Time and Location Date Performed: 08/19/22 Time Performed: 09:42 Patient Location: Day Surgery Unit Vital Signs Most Recent Imported Vital Signs: Most Recent Vital Signs Temp Pulse Resp BP Pulse Ox 37.1 C 51 L 16 119/60 97 08/19/22 09:42 08/19/22 09:42 08/19/22 09:42 08/19/22 09:42 08/19/22 09:42 Pain Score Most Recent Pain Score: Most Recent Pain Score Pain Level 0 08/19/22 09:42 Assessment Mental Status: Awake (Alert & Oriented to Patient Baseline) Airway and Respiratory Function: Patent airway with normal (patient baseline) respiratory exam Cardiovascular Function: Hemodynamically Stable Hydration Status: Adequately Hydrated Nausea & Vomiting: No Nausea or Vomiting Pain: Pt. Denies Any Pain Peripheral Nerve Block: Patient did not receive a nerve block
[2022-08-19 10:10] VITALS: BP 133/70; PULSE 48; RESP 16; TEMP 36.6; O2SAT 99
== END 2022-08-19 10:23 | disposition home or self-care (01) ==
PROVIDERS: PCP Nurse Practitioner Family; Visit Provider Surgery
PROC: 0DJD8ZZ Inspection of Lower Intestinal Tract, Via Natural or Artificial Opening Endoscopic (ICD-10-PCS; CPT 45378; principal; 2022-08-19 09:30)
DX: Z12.11 Encounter for screening for malignant neoplasm of colon (principal); Z80.0 Family history of malignant neoplasm of digestive organs; K63.5 Polyp of colon
CPT/HCPCS: 45380; 88305; J2405

== ENCOUNTER 2022-10-22 01:59 | Outpatient (CLI) | payer MEDICAID, SELFPAY ==
--- NOTE | 2022-10-22 08:16 | DI.MAMMO_ITS ---
Exam(s) MAMMO SCREENING EXAM: MAMMO SCREENING CLINICAL HISTORY: screening,z12.39 TECHNIQUE: Bilateral full field digital CC and MLO mammographic images were obtained with 3D tomosyn thesis and utilizing computer aided detection (CAD). COMPARISON: Available for comparison. FINDINGS: Masses/Architectural Distortion: There again seen postsurgical changes of a prior right breast biopsy . No suspicious masses are seen. Microcalcifications: No suspicious pleomorphic-type are seen. Skin Thickening/Nipple Retraction: None. IMPRESSION: 1. No significant interval change with no specific features of malignancy noted. 2. Unless there is more urgent need, screening mammography is recommended, as per [employer] guidelines. BI-RADS Category 1 - Negative Breast Density - Category B - Scattered areas of fibroglandular density Breast density category C or D implies that the patient has dense breast tissue. Dense breast tissue is very common and is not abnormal but dense breast tissue can make it harder to find cancer on a ma mmogram. Also, dense breast tissue may increase their breast cancer risk. This information about the result of the mammogram report was provided to the patient to raise their awareness. Use this report when you speak with the patient about their risks for breast cancer, which includes their family hist ory. At that time, you may recommend for more screening tests (Ultrasound or MRI) as they might be us eful based on their risk. A negative radiographic report should not delay biopsy if a dominant or clinically suspicious mass is present. Up to ten percent of cancers are not identified on mammography. A negative report may reinforce clinical impression. Adenosis and dense breasts may obscure an underlying neoplasm. False positive reports average 6 to 10%. Patient will receive a letter notifying them of these results.
== END 2022-10-22 02:19 ==
PROVIDERS: PCP Nurse Practitioner Family; Visit Provider Nurse Practitioner Family
DX: Z12.31 Encounter for screening mammogram for malignant neoplasm of breast (principal)
CPT/HCPCS: 77063; 77067

== ENCOUNTER 2023-05-23 11:06 | Outpatient (CLI) | payer MEDICAID, SELFPAY ==
--- NOTE | 2023-05-23 11:00 | RT.EKG_ITS ---
APPROVED REPORT Exam: Resting ECG Reason for Exam: follow up Patient Location: O HR:51 bpm ECG Measurements Heart Rate 51 AXIS ND 155 P 58 QRSd 84 QRS 33 QT 424 T 32 QTc 391 Conclusion Sinus rhythm...normal P axis, V-rate 50- 99 Anteroseptal infarct, age indeterminate...Q >35mS, T neg, V1-V2 I have reviewed and interpreted ECG and agree with software generated interpretation.
== END 2023-05-23 11:07 | disposition home or self-care (01) ==
LOC: DI.CARD 11:06
PROVIDERS: PCP Nurse Practitioner Family; Visit Provider Internal Medicine Interventional Cardiology
DX: I47.10 Supraventricular tachycardia, unspecified (principal)
CPT/HCPCS: 93010

== ENCOUNTER 2023-09-17 05:03 | Outpatient (CLI) | payer BC, SELFPAY ==
[2023-09-17 08:14] LABS: Abs Immature Grans 0.02 10^3/uL (0.0-0.06); Absolute Basophil Count 0.08 10^3/uL (0.0-0.2); Absolute Eosinophil Count 0.22 10^3/uL (0.0-0.7); Absolute Lymphocyte Count 1.92 10^3/uL (1.2-3.4); Absolute Monocyte Count 0.44 10^3/uL (0.1-0.8); Absolute Neutrophil Count 3.71 10^3/uL (1.2-6.7); Basophils % 1.3 %; Eosinophils % 3.4 %; HCT 43.8 % (36.0-46.0); HGB 14.5 g/dL (11.2-15.7); Immature Grans % 0.3 %; MCH 29.8 pg (27.0-33.0); MCHC 33.1 % (32.0-36.0); MCV 90 fL (80-95); MPV 10.2 fL (8.0-11.0); Monocytes % 6.9 %; Neutrophils % 58.1 %; Platelet Count 277 10^3/uL (130-400); RBC 4.87 10^6/uL (3.93-5.22); RDW 12.1 % (11.7-14.6); RDW-SD 39.8 fL; WBC 6.39 10^3/uL (4.4-10.8)
[2023-09-17 08:57] LABS: ALT 19 U/L (14-59); AST 19 U/L (15-37); Albumin 4.2 g/dL (3.4-5.0); Alkaline Phosphatase 81 U/L (46-116); Anion Gap 11.3 mmol/L (3-11); BUN 17 mg/dL (7-18); Bilirubin, Total 0.9 mg/dL (0.2-1.0); CO2 26.7 mmol/L (21.0-32.0); Calcium 8.8 mg/dL (8.5-10.1); Calculated LDL 128 mg/dL (<100); Chloride 106 mmol/L (98-107); Cholesterol 189 mg/dL (<200); Estimated GFR 64.09 (mL/min/1.73m2); Glucose 101 mg/dL (74-106); HDL Cholesterol 50 mg/dL (40-60); Potassium 4.2 mmol/L (3.5-5.1); Sodium 144 mmol/L (136-145); TSH (W/Ref FT4) 4.22 uIU/mL (0.36-3.74); Total Protein 7.2 g/dL (6.4-8.2); Triglyceride 57 mg/dL (<150)
[2023-09-17 09:14] LABS: FREE T4 0.97 ng/dL (0.76-1.46)
== END 2023-09-17 05:04 | disposition home or self-care (01) ==
LOC: LBO 05:03
PROVIDERS: PCP Nurse Practitioner Family; Visit Provider Nurse Practitioner Family
DX: E03.9 Hypothyroidism, unspecified (principal); E78.5 Hyperlipidemia, unspecified; N18.9 Chronic kidney disease, unspecified; Z13.1 Encounter for screening for diabetes mellitus
CPT/HCPCS: 36415; 80053; 80061; 84439; 84443; 85025

== ENCOUNTER 2023-10-14 14:39 | Outpatient (REF) | payer BC, SELFPAY ==
--- NOTE | 2023-10-14 14:15 | PAPFT_PTH ---
PATIENT: Rosaura Blair LOC: [facility] U#:[id number] AGE/SX: 63/F ROOM: RE10/14/[address]: Tonya David APRN : 1960 BED: DIS: 10/14/2023 SPEC #: [id number] RECD: 10/14/23 17:35 STATUS: RASHAWN REPietro #: [id number] BIANCA: 10/14/23 14:[address]: Tonya David DEPT: [facility] Cytology RECD BY: Christen Bee ENTERED: 10/14/23 17:35 SP TYPE: PAPFT OTHR DR: Rosemary Duran APRN Tissues: 1 - CX/ENDOCX FOR PAP SMEARS Procedures: PAP THIN PREP/UVM Screening HPV DNA PROBE Comments: [id number]
== END 2023-10-14 14:40 | disposition home or self-care (01) ==
LOC: LBN 14:39
PROVIDERS: PCP Nurse Practitioner Family; Referring Provider Nurse Practitioner; Visit Provider Nurse Practitioner
DX: R30.0 Dysuria (principal); Z01.419 Encounter for gynecological examination (general) (routine) without abnormal findings; E03.9 Hypothyroidism, unspecified; Z86.39 Personal history of other endocrine, nutritional and metabolic disease; B96.89 Other specified bacterial agents as the cause of diseases classified elsewhere
CPT/HCPCS: 88142; 87086; 87624

== ENCOUNTER 2024-08-09 02:08 | Outpatient (CLI) | payer BC, SELFPAY ==
--- NOTE | 2024-08-09 12:02 | DI.MAMMO_ITS ---
Exam(s) MAMMO SCREENING EXAM: MAMMO SCREENING CLINICAL HISTORY: screening,Z12.39. TECHNIQUE: Bilateral full field digital CC and MLO mammographic images were obtained with 3D tomosyn thesis and utilizing computer aided detection (CAD). COMPARISON: Prior mammograms dating back to 2016 were reviewed. FINDINGS: There has been no significant change in the appearance and distribution of the fibroglandular tissue. Stable architectural distortion-scarring in the right breast from prior surgery is unchanged. There are benign microcalcifications noted in both breasts. There are no new spiculated masses nor new malignant appearing microcalcification groups. There is no new significant architectural distortion. IMPRESSION: Stable benign findings. No radiographic evidence of malignancy. BI-RADS Category 2 - Benign Findings Breast Density - Category B - Scattered areas of fibroglandular density Breast density Category C or D implies that the patient has dense breast tissue. Dense breast tissue can make it harder to find cancer on a mammogram. Dense breast tissue is also associated with an incr eased risk of breast cancer. This information about the result of the mammogram report was provided to the patient to raise their awareness. Use this report when you speak with the patient about their risks for breast cancer, which includes their family history. At that time, you may recommend additional screening tests (Ultrasoun d or MRI) as these tests may add significant information. A negative radiographic report should not delay biopsy if a dominant or clinically suspicious mass is present. Up to ten percent of cancers are not identified on mammography. A negative report may reinforce clinical impression. Adenosis and dense breasts may obscure an underlying neoplasm. False positive reports average 6 to 10%. Patient will receive a letter notifying them of these results.
== END 2024-08-09 02:28 ==
PROVIDERS: PCP Nurse Practitioner Family; Visit Provider Nurse Practitioner
DX: Z12.31 Encounter for screening mammogram for malignant neoplasm of breast (principal); R92.323 Mammographic fibroglandular density, bilateral breasts; D24.1 Benign neoplasm of right breast; D24.2 Benign neoplasm of left breast
CPT/HCPCS: 77063; 77067

== ENCOUNTER 2024-08-09 02:50 | Outpatient (CLI) | payer BC, SELFPAY ==
[2024-08-09 12:34] LABS: ALT 19 U/L (14-59); AST 20 U/L (15-37); Alkaline Phosphatase 75 U/L (46-116); Anion Gap 3.1 mmol/L (3-11); BUN 19 mg/dL (7-18); Bilirubin, Total 1.3 mg/dL (0.2-1.0); CO2 31.9 mmol/L (21.0-32.0); Calculated LDL 119 mg/dL (<100); Chloride 109 mmol/L (98-107); Cholesterol 178 mg/dL (<200); Glucose 88 mg/dL (74-106); HDL Cholesterol 52 mg/dL (>or=50); Potassium 4.7 mmol/L (3.5-5.1); Sodium 144 mmol/L (136-145); TSH (W/Ref FT4) 3.13 uIU/mL (0.36-3.74); Total Protein 6.6 g/dL (6.4-8.2); Triglyceride 38 mg/dL (<150)
== END 2024-08-09 02:51 | disposition home or self-care (01) ==
LOC: LBO 02:50
PROVIDERS: PCP Nurse Practitioner Family; Visit Provider Nurse Practitioner
DX: E78.5 Hyperlipidemia, unspecified (principal); N18.9 Chronic kidney disease, unspecified; E03.9 Hypothyroidism, unspecified
CPT/HCPCS: 36415; 80053; 80061; 84443

== ENCOUNTER 2025-01-18 16:26 | Outpatient (CLI) | payer OTHER, SELFPAY ==
--- NOTE | 2025-01-18 06:45 | DI.RAD_ITS ---
Exam(s) XR ELBOW RT COMPLETE EXAM: XR ELBOW RT COMPLETE CLINICAL HISTORY: LATERAL EPICONDYLLITIS,eight weeks without resolution.M77.11. TECHNIQUE: 2D digital imaging was performed. Three views. COMPARISON: CR XR ELBOW LT COMPLETE from 01/18/2025 FINDINGS: BONES: No acute fracture is present. No bony destructive lesion is seen. Spurring at the medial epicondyle could indicate chronic tendinosis. JOINTS: The elbow is normally aligned. No joint effusion is seen. Spurring at the coronoid process. The joint spaces are maintained. SOFT TISSUE: Normal. IMPRESSION: Mild degenerative changes. DATA REPOSITORY: RADIATION DOSE DELIVERED:
--- NOTE | 2025-01-18 06:45 | DI.RAD_ITS ---
Exam(s) XR ELBOW LT COMPLETE EXAM: XR ELBOW LT COMPLETE CLINICAL HISTORY: lt lateral epicondylitis ,eight weeks without resolution,M77.12. TECHNIQUE: 2D digital imaging was performed. Three views. COMPARISON: No exams were available for comparison FINDINGS: BONES: No acute fracture is present. No bony destructive lesion is seen. There is minimal spurring at the lateral epicondyle with could indicate chronic tendinosis. JOINTS: The elbow is normally aligned. No joint effusion is seen. Minimal spurring at the coronoid process. SOFT TISSUE: Normal. IMPRESSION: No acute abnormality. DATA REPOSITORY: RADIATION DOSE DELIVERED:
== END 2025-01-18 16:46 ==
LOC: DI 16:28
PROVIDERS: Visit Provider Family Medicine
DX: M77.11 Lateral epicondylitis, right elbow (principal); M77.12 Lateral epicondylitis, left elbow
CPT/HCPCS: 73080

== ENCOUNTER 2025-02-11 04:06 | Outpatient (CLI) | payer BC, SELFPAY ==
--- NOTE | 2025-02-11 09:44 | W.NUTRFU ---
Date of service: 02/11/25 Time of Service: 09:00 Nutrition Note NOTE: Rosaura referred to nutrition visit for HLD- labs indicate LDL of 119 back in July with HDL of 52, TGL of 38 and TC of 178. Rosaura offered statin but has not started - feels her cholesterol is not that bad and would like some diet tips. I agreed that her chol profile is not too alarming and suggested she really work to increase both soluble and insoluble fiber in her diet by working more strategic plant protein in her diet as part of a goal to help meet optimal protein suggestion of 120g per day without using all higher kcal animal products. emphasized exercise,sleep and stress mgt as part of her overall healthy habit goal. We reviewed fiber types and amounts in common foods as well as protein and she was given handouts. Suggested 1 scoop of whey protein Isolate per day to help with getting ~25g of her protein goal met. Went over importance of eating less processed foods, avoiding juice, trying to choose grain products less often but when she does try to ensure at least 3 fiber per serving in this category. Gave her my card with contact info should she desire follow up Time Spent in Nutritional Counseling and Treatment: 15 min
== END 2025-02-11 04:07 | disposition home or self-care (01) ==
LOC: DS 04:06
PROVIDERS: PCP Nurse Practitioner; Visit Provider Dietitian, Registered
DX: E78.5 Hyperlipidemia, unspecified (principal)
CPT/HCPCS: 00123; 97802

== ENCOUNTER 2025-05-08 13:20 | Inpatient (IN) | payer SELFPAY ==
[2025-05-08] VITALS (97 sets, daily range): BP systolic 115–164; BP diastolic 74–139; PULSE 66–173; RESP 13–30; TEMP 37.2–37.5; O2SAT 95–99
--- NOTE | 2025-05-08 13:30 | RT.EKG_ITS ---
APPROVED REPORT Exam: Resting ECG Reason for Exam: Palpations Patient Location: E HR:161 bpm ECG Measurements Heart Rate 161 AXIS MA [id number] P [id number] QRSd 82 QRS 38 QT 307 T 2 QTc 491 Conclusion Atrial fibrillation with rapid V-rate...A-rate 337 Repolarization abnormality, prob rate related...ST dep, T neg, tachycardia No Occlusion MA
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
[2025-05-08] MEDS: Normal Saline 500 ML IV (14:00)
[2025-05-08 14:18] LABS: Abs Immature Grans 0.05 10^3/uL (0.0-0.06); HCT 46.2 % (36.0-46.0); HGB 15.2 g/dL (11.2-15.7); Immature Grans % 0.5 %; MCH 29.2 pg (27.0-33.0); MCHC 32.9 % (32.0-36.0); MCV 89 fL (80-95); MPV 10.1 fL (8.0-11.0); Platelet Count 326 10^3/uL (130-400); RBC 5.21 10^6/uL (3.93-5.22); RDW 11.9 % (11.7-14.6); RDW-SD 38.7 fL; WBC 9.61 10^3/uL (4.4-10.8)
[2025-05-08 14:32] LABS: Magnesium 2.0 mg/dL (1.6-2.6)
[2025-05-08 14:34] LABS: Anion Gap 10.6 mmol/L (3-11); BUN 19 mg/dL (9-23); CO2 22.4 mmol/L (20.0-31.0); Calcium 8.9 mg/dL (8.3-10.6); Chloride 109 mmol/L (98-107); Glucose 149 mg/dL (74-106); Potassium 3.5 mmol/L (3.5-5.1); Sodium 142 mmol/L (136-145)
[2025-05-08 14:37] LABS: TSH (W/Ref FT4) 6.80 uIU/mL (0.55-4.78)
[2025-05-08] MEDS: Metoprolol 5 MG/5 ML VIAL IVP ×5 (16:31→20:23)
[2025-05-08] MEDS: Metoprolol 25 MG TAB PO (19:30)
[2025-05-08] MEDS: Digoxin 0.5 MG/2 ML AMP IVP (23:59)
[2025-05-09] VITALS (36 sets, daily range): BP systolic 118–150; BP diastolic 54–103; PULSE 45–152; RESP 12–22; TEMP 36.6–37.6; O2SAT 97–98
--- NOTE | 2025-05-09 01:00 | RT.EKG_ITS ---
APPROVED REPORT Exam: Resting ECG Reason for Exam: Conversion from A. Fib Patient Location: I HR:64 bpm ECG Measurements Heart Rate 64 AXIS WI 127 P -11 QRSd 87 QRS 29 QT 376 T 25 QTc 388 Conclusion Sinus rhythm...normal P axis, V-rate 50- 99 Borderline low voltage, extremity leads...all extremity leads <0.6mV Otherwise normal ECG
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
[2025-05-09] MEDS: Zolpidem 5 MG TAB PO ×4 (01:27→23:16)
[2025-05-09] MEDS: Enoxaparin 60 MG/0.6 ML SYR SC (01:27)
--- NOTE | 2025-05-09 02:22 | W.PC.ACHO ---
Registration Status: ADM IN Primary Language: Preferred Language: Thai ED Information & Data Chief Complaint Palpitatns 05/08/25 13:44 Triage Note having palpitations all 05/08/25 13:28 morning. recent head cold x3 days. poor appetite. hx SVT. intermittent fever. took Tylenol this morning for cold symptoms. took extra dose of atenolol this morning. ablation in 1997 or 1998 ([facility] [place] & [facility]) Medical / Surgical History (Last Reviewed 07/05/24 @ 14:16 by Alee Sanchez NP) Actinic keratosis Hyperplastic colon polyp (~08/19/22) SARS-CoV-2 positive (01/31/22) Graves disease Bilateral carpal tunnel syndrome (11/07/15) Tobacco use disorder (10/30/11) Abnormal Pap smear of cervix (Last Reviewed 07/05/24 @ 14:16 by Alee Sanchez NP) H/O cardiac radiofrequency ablation Rotator Cuff Repair (06/24/16) Excision, Distal Clavicle (07/12/15) Cone Biopsy Colonoscopy - MAC (08/19/22) Carpal Tunnel Release, Right Breast, Lumpectomy Most Recent Vital Signs Temperature 37.2 C 05/08/25 13:28 Temperature Source Temporal Artery Scan 05/08/25 13:28 Pulse 150 H 05/08/25 23:59 Pulse 147 H 05/08/25 22:40 Respiratory Rate 14 05/08/25 22:40 Blood Pressure 150/105 H 05/08/25 22:30 Blood Pressure Mean 120 05/08/25 22:30 Blood Pressure Position Sitting 05/08/25 13:28 Pulse Oximetry 96 05/08/25 22:40 Oxygen Delivery Method Room Air 05/08/25 13:28 Oxygen Flow Rate 0 05/08/25 13:28 Pain Level 0 05/08/25 13:28 Allergies Penicillins Allergy (Unknown, Verified 05/08/25 13:44) swelling & hives verapamil Allergy (Unknown, Verified 05/08/25 13:44) rash Sulfa (Sulfonamide Antibiotics) Adverse Reaction (Unknown, Verified 05/08/25 13:44) sweating, vomiting Active Medications Generic Name Dose Route Start Last Admin Trade Name Freq PRN Reason Stop Dose Admin Zolpidem Tartrate 5 mg 05/09/25 00:37 05/09/25 01:27 Zolpidem 5 Mg Tab PO 5 mg HS PRN PRN Administration IV IV Catheter Type [Right Wrist] Saline Lock IV Catheter Gauge [Right Wrist 20 ] Diet Orders Category Date Time Status Regular/Normal [DIET] Nutrition 05/09/25 Breakfast Active Diagnostics 05/09/25 05/08/25 Range/Units 05:35 13:55 WBC Pending 9.61 (4.4-10.8) 10^3/uL RBC Pending 5.21 (3.93-5.22) 10^6/uL Hgb Pending 15.2 (11.2-15.7) g/dL Hct Pending 46.2 H (36.0-46.0) % MCV Pending 89 (80-95) fL MCH Pending 29.2 (27.0-33.0) pg MCHC Pending 32.9 (32.0-36.0) % RDW Pending 11.9 (11.7-14.6) % Plt Count Pending 326 (130-400) 10^3/uL MPV Pending 10.1 (8.0-11.0) fL Immature Gran % Pending 0.5 % Neutrophils % Pending 70.7 % Lymphocytes % Pending 16.1 % Monocytes % Pending 12.0 % Eosinophils % Pending 0.1 % Basophils % Pending 0.6 % Nucleated RBC % 0.0 (0.0-0.3) % Absolute Neutrophils Pending 6.79 H (1.2-6.7) 10^3/uL Absolute Lymphocytes Pending 1.55 (1.2-3.4) 10^3/uL Absolute Monocytes Pending 1.15 H (0.1-0.8) 10^3/uL Absolute Eosinophils Pending 0.01 (0.0-0.7) 10^3/uL Absolute Basophils Pending 0.06 (0.0-0.2) 10^3/uL Sodium Pending 142 (136-145) mmol/L Potassium Pending 3.5 (3.5-5.1) mmol/L Chloride Pending 109 H (98-107) mmol/L Carbon Dioxide Pending 22.4 (20.0-31.0) mmol/L Anion Gap Pending 10.6 (3-11) mmol/L BUN Pending 19 (9-23) mg/dL Creatinine Pending 1.07 H (0.55-1.02) mg/dL Est GFR (CKD-EPI 2020) Pending 51.75 (mL/min/1.73m2) Glucose Pending 149 H (74-106) mg/dL Calcium Pending 8.9 (8.3-10.6) mg/dL Magnesium 2.0 (1.6-2.6) mg/dL Total Bilirubin Pending AST Pending ALT Pending Alkaline Phosphatase Pending Total Protein Pending Albumin Pending TSH 6.80 H (0.55-4.78) uIU/mL Free T4 1.26 (0.89-1.76) ng/mL Intake and Output - 24 Hour Total 05/08/25 13:20 thru 05/08/25 23:33 Intake Total 500 Output Total 250 Balance 250 Weight 68.946 kg Intake: IV 500 Output: Urine 250 Other: Urine Color Yellow Urine Appearance Clear Falls Risk Assessment Contributing Factors No Factors 05/08/25 13:44 Fall Total Score 0 05/08/25 13:44 Level of Risk Standard/Low Risk 05/08/25 13:44 Problems (Last Reviewed 07/05/24 @ 14:16 by Alee Sanchez NP) Atrial fibrillation with RVR (Acute) Hyperlipidemia, unspecified (Chronic) History of Graves' disease (Acute) Attestation Statement: By documenting the first initial, last name, and credentials of the reporting nurse below, both parties acknowledge that all relevant information regarding the patient handoff has been communicated, and that all questions have been addressed to ensure continuity and safety of care. Additional Patient Information/Comments: Report Received From: Sumeet Vincent RN
[2025-05-09 06:04] LABS: Abs Immature Grans 0.04 10^3/uL (0.0-0.06); HCT 43.7 % (36.0-46.0); HGB 14.5 g/dL (11.2-15.7); Immature Grans % 0.4 %; MCH 29.5 pg (27.0-33.0); MCHC 33.2 % (32.0-36.0); MCV 89 fL (80-95); MPV 10.0 fL (8.0-11.0); Platelet Count 266 10^3/uL (130-400); RBC 4.91 10^6/uL (3.93-5.22); RDW 12.1 % (11.7-14.6); RDW-SD 39.7 fL; WBC 9.38 10^3/uL (4.4-10.8)
[2025-05-09 06:23] LABS: ALT 11 U/L (10-49); AST 27 U/L (<34); Albumin 4.3 g/dL (3.2-5.0); Alkaline Phosphatase 67 U/L (46-116); Anion Gap 9.5 mmol/L (3-11); BUN 15 mg/dL (9-23); Bilirubin, Total 0.7 mg/dL (0.2-1.2); CO2 23.5 mmol/L (20.0-31.0); Calcium 8.8 mg/dL (8.3-10.6); Chloride 111 mmol/L (98-107); Glucose 90 mg/dL (74-106); Potassium 3.8 mmol/L (3.5-5.1); Sodium 144 mmol/L (136-145); Total Protein 6.9 g/dL (5.7-8.2)
[2025-05-09] MEDS: Digoxin 0.5 MG/2 ML AMP 0.25 MG IVP (06:36)
[2025-05-09] MEDS: Normal Saline Flush 10 ML SYR IVP (08:19)
[2025-05-09] MEDS: Atenolol 25 MG TAB PO ×2 (08:19→21:10)
[2025-05-09] MEDS: Cholecalciferol (Vitamin D3) 1,000 UNIT TAB 2000 UNITS PO (08:19)
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
[2025-05-09 10:05] LABS: RSV PCR Negative (Negative)
[2025-05-09 10:09] LABS: COVID-19 PCR Positive (Negative)
--- NOTE | 2025-05-09 12:45 | PHA.REVIEW2 ---
Pharmacy Admission Review Admission Clinical Review Admission Pharmacy Review: Atrial fibrillation with RVR (Acute) History of Graves' disease (Acute) Penicillins Allergy (Unknown, Verified 05/08/25 13:44) swelling & hives verapamil Allergy (Unknown, Verified 05/08/25 13:44) rash Sulfa (Sulfonamide Antibiotics) Adverse Reaction (Unknown, Verified 05/08/25 13:44) sweating, vomiting Resuscitation Status Full Code Height 5 ft 5 in Weight 68.9 kg Pharmacy Admission Review Renal Dosing Renal Dosing: BUN 15 mg/dL (9-) 05/09/25 05:39 Creatinine 0.85 mg/dL (0.55-1.02) 05/09/25 05:39 Medications needing adjustments: Reviewed (CrCl 56.13 mL/min) List of meds needing interventions: Current medications are okay Anticoagulation Anticoagulation: Hgb 14.5 g/dL (11.2-15.7) 05/09/25 05:39 Hct 43.7 % (36.0-46.0) 05/09/25 05:39 Plt Count 266 10^3/uL (130-400) 05/09/25 05:39 Creatinine 0.85 mg/dL (0.55-1.02) 05/09/25 05:39 DVT Prophylaxis: Reviewed Medications: Enoxaparin (40mg daily) Relevant Labs Relevant Labs: Sodium 144 mmol/L (136-145) 05/09/25 05:39 Potassium 3.8 mmol/L (3.5-5.1) 05/09/25 05:39 Chloride 111 mmol/L (98-107) H 05/09/25 05:39 Magnesium 2.0 mg/dL (1.6-2.6) 05/08/25 13:55 Electrolytes, C-Reactive P, ESR: Reviewed Cardiac Review Cardiac Review: Blood Pressure : Heart Rate 133/74 : 68 0800 Blood Pressure : Heart Rate 118/64 : 58 0601 Blood Pressure : Heart Rate 130/76 : 77 0401 Blood Pressure : Heart Rate 131/77 : 67 0201 Blood Pressure : Heart Rate 142/70 : 53 0100 BP, HR, EF%: Reviewed List meds needing interventions: Has orders for atenolol 25mg BID and digoxin 0.125mg daily (to start 05/10). Patient received digoxin 0.25mg IVP today at 0636. QTc Review QTc: Reviewed (491 from 05/08/25) IV to PO Switch IV Medications: Reviewed Home Meds Home Med List reviewed: Reviewed Relevent Home Meds Not ordered & why?: lorazepam (PRN) and valacyclovir (PRN) Current Meds Current Medication Order Review: Intervened Comments: Changed enoxaparin timing. Order was set to start today at 0830 but patient received 60mg dose at 0127. Changed order from DAILY to QPM. Changed ibuprofen order from 200mg tablets to 600mg tablets (dose = 600mg)
--- NOTE | 2025-05-09 15:28 | PGE_ITS ---
Date of Service Date of service: 05/09/25 Time of Service: 15:28 Assessment and Plan Assessment and plan (1) Atrial fibrillation with RVR: Status: Acute Assessment and plan: Patient had multiple rounds of beta-blockade without much success, converted after starting on digoxin. She also had a breif history of PSVT on tele, which is c/w her history. Her [id number] is only 1 for her sex. We discussed uncertainty about anticoagulation. Holding off for now. Echo pending, she would like to have this information before discharge Get digoxin level in am She only takes 25-50 atenolol at home, if pulse is low consider cutting dose down. (2) History of Graves' disease: Status: Acute Assessment and plan: Patient does have a history of Graves' disease but has been off medications. She did have an elevated TSH >6 but a normal Free T4. With atrial fib I don't want to start levothyroxine now, follow as outpatient. (3) COVID-19: Status: Acute Assessment and plan: This was likely trigger of afib, though her symptoms are mild. We discussed anti-viral medications, but she feels like her COVID symptoms are resolving on their own, so will not use. (4) Insomnia: Status: Chronic Assessment and plan: A/w untreated EVIN. Chronic. she can use prn zolpidem 5mg. Subjective Subjective Patient reports: no new complaints and tolerating a regular diet; denies diarrhea, nausea, vomiting, shortness of breath or fever Interval history since last seen: Coverted to NSR overnight after digoxin loading She feels good this morning, but did have episode of palptitions at 13:47. No chest pain or dizziness. Only lasted a few seconds, but made her anxious. Exam Narrative Exam Narrative: GEN: alert and oriented, NAD Cardiovascular: RRR, no m/g, HR in 60s Lungs clear to auscultation bilaterally good air exchange Abdomen soft nontender nondistended bowel sounds active Extremities no sinus clubbing or edema Neurologic nonfocal Objective Last Vital Signs Temp 37.6 C H 05/09/25 12:35 Pulse 47 L 05/09/25 14:01 Resp 20 05/09/25 14:01 BP 120/54 L 05/09/25 14:01 Pulse Ox 97 05/08/25 22:46 Laboratory Results - last 24 hr 05/08/25 05/09/25 05/09/25 13:55 05:39 09:20 WBC 9.38 RBC 4.91 Hgb 14.5 Hct 43.7 MCV 89 MCH 29.5 MCHC 33.2 RDW 12.1 Plt Count 266 MPV 10.0 Immature Gran % 0.4 Neutrophils % 69.7 Lymphocytes % 19.6 Monocytes % 9.5 Eosinophils % 0.1 Basophils % 0.7 Nucleated RBC % 0.0 Absolute Neutrophils 6.53 Absolute Lymphocytes 1.84 Absolute Monocytes 0.89 H Absolute Eosinophils 0.01 Absolute Basophils 0.07 Sodium 144 Potassium 3.8 Chloride 111 H Carbon Dioxide 23.5 Anion Gap 9.5 BUN 15 Creatinine 0.85 Est GFR (CKD-EPI 2020) 67.49 Glucose 90 Calcium 8.8 Total Bilirubin 0.7 AST 27 ALT 11 Alkaline Phosphatase 67 Total Protein 6.9 Albumin 4.3 Free T4 1.26 COVID-19 Source Nasopharynx SARS-CoV-2 (PCR) Positive A Influenza Type A (PCR) Negative Influenza Type B (PCR) Negative RSV (PCR) Negative PAWSS Have you Been Recently Intoxicated or Drunk Within the Last 30 days?: No Have you Ever Experienced Previous Episodes of Alcohol Withdrawal?: No Have you ever Experienced Withdrawal Seizures?: No Have you ever Experienced Delirium Tremens(DT)s?: No Have you ever undergone Alcohol Rehabilitation Treatment (i.e, inpt ot outpatient treatment programs)?: No Have you ever Experienced Blackouts?: No Have you ever Combined Alcohol with other Downers within the last 90 days?: No Have you ever Combined Alcohol with any other Substance of Abuse during the last 90 days?: No Positive Blood Alcohol level on Presentation? [PCS.BAL]: No Evidence of Increased Autonomic Activity (i.e. HR>120, tremor, sweating, agitation, nausea)?: No Result: 0 VTE Prohylaxis Risk Level: Moderate/High Risk Contraindications: None Prophylaxis: Pharmacologic Time Spent with Patient Time Spent with Patient: 35-49 minutes Time was spent: preparing to see the patient(eg.review tests), obtaining and/or reviewing separately otained hiistory, ordering medications,tests, procedures, referring, communicating with other health animal care giver, indepentently interpreting results, counseling the patient and care coordination
[2025-05-09] MEDS: Acetaminophen 325 MG TAB 650 MG PO (21:11)
[2025-05-09] MEDS: Enoxaparin 40 MG/0.4 ML SYR SC (21:11)
[2025-05-10] VITALS (18 sets, daily range): BP systolic 127–135; BP diastolic 61–76; PULSE 47–72; RESP 11–21; TEMP 36.6–37.2; O2SAT 97
--- NOTE | 2025-05-10 06:00 | DI.US_ITS ---
APPROVED REPORT EXAM: Comprehensive 2D, Doppler, and color-flow Echocardiogram Patient Location: In-Patient Room/Bed: [id number] Mica Patcher: Razia Power RDCS (AE) Indications: New atrial fibrillation, COVID+ Other Information Study Quality: Adequate. Technically limited study due to exam done bedside ICU. Conclusion Normal left ventricular wall thickness and chamber size. Ejection fraction is 60%. Wall motion is normal Normal right ventricular size and function Mildly dilated left atrium. Normal right atrial size There are no structural valvular abnormalities Trace to mild mitral and tricuspid regurgitation Estimated right ventricular systolic pressure is 30 mmHg Wall motion Left Ventricle The left ventricle is normal size. The left ventricular systolic function is normal. The left ventricular ejection fraction is within the normal range. There is normal left ventricular wall thickness. There is normal LV segmental wall motion. There is no ventricular septal defect visualized. LVEF is 60%. Right Ventricle The right ventricle is normal size. The right ventricular systolic function is normal. Atria The left atrium is mildly dilated The right atrium size is normal. The interatrial septum is intact with no evidence for an atrial septal defect. Aortic Valve The aortic valve is normal in structure. Aortic valve is trileaflet. There is no aortic valvular stenosis. No aortic regurgitation is present. Mitral Valve The mitral valve is normal in structure. No evidence of mitral valve stenosis. Trace to mild mitral regurgitation. Tricuspid Valve The tricuspid valve is normal in structure. There is no tricuspid valve stenosis. Trace to mild tricuspid regurgitation. The RVSP is 29.9_ mmHg. Pulmonic Valve The pulmonary valve is normal in structure. There is no pulmonic valvular stenosis. There is no pulmonic valvular regurgitation. Great Vessels The aortic root is normal in size. The ascending aorta is normal in size. Aortic arch is not well visualized. IVC is normal in size and collapses >50% with inspiration. Pericardium There is no pericardial effusion. 2D Dimensions IVSD d PLAX 0.90 cm F: 0.6-1.0 Ao Root d 2.71 cm F: 2.7 - 3.3 LVPW d PLAX 0.91 cm F: 0.6 - 1.0 Ao Asc Diam d 2.81 cm F: 2.3 - 3.1 LVID d PLAX 5.10 cm F: 3.8 - 5.2 LVDs 3.44 cm F: 2.2 - 3.5 LV EF Teichholz 60.3 % FS 32.36 % LV EDV (Teich) 123.3 mL LV ESV (Teich) 48.9 mL M-Mode TAPSE 2.55 cm (M/F) >1.7 Auto EF LV EDV A4C 85.3 mL LV EDV A2C 110.5 mL LV EDV BP 94.9 mL LV ESV A4C 34.4 mL LV ESV A2C 44.5 mL LV ESV BP 39.7 mL LVEF(%) A4C 59.7 % LVEF(%) A2C 59.7 % LVEF(%) BP 58.2 % LV SV A4C 51.0 ml LV SV A2C 65.9 ml LV SV BP 55.2 ml LV CO A4C 2.7 L/min LV CO A2C 3.0 L/min LV CO BP 2.9 L/min HR A4C 53.16 BPM HR A2C 46.04 BPM LV EDV Index (BP) LA Volume LA Length A4C 6.0 cm LA Length A2C 5.0 cm LA Area A4C s 22.01 cm2 LA Area A2C s 18.63 cm2 LA Vol A4C A-L 68.57 mL LA Vol A2C A-L 58.84 mL LA Vol Biplane A-L 69.5 mL LA Vol/BSA A4C A-L LA Vol/BSA A2C A-L LA Vol/BSA BP A-L 39.5 mL/m2 LA Vol A4C MOD 63.7 mL LA Vol A2C MOD 56.0 mL LA Vol BP MOD 65.0 mL RA Volume RA Area A4C 13.0 cm2 RA ESV A4C (A-L) 34.9mL RA Vol/BSA A4C A-L RA Length A4C 4.1 cm RA ESV A4C (MOD) 32.5mL LV Diastology MV E' medial 0.079 (>0.07 m/s) MV E Vmax 0.78 (0.4-1.3 m/s) MV E/E' MED 9.89 (<14) MV A Vmax 0.60 (0.4-1.3 m/s) MV E' lateral 0.094 (>0.1 m/s) E/A Ratio 1.3 MV E/E' LAT 8.29 (<14) MV E' Average 0.086 m/s MV E/E'(average) 9.02 Aortic Valve AoV Vmax 1.65 m/s LVOT Vmax 1.18 m/s AoV Peak Grad 10.9 mmHg LVOT Peak Grad 5.5 mmHg AoV Area (Vmax) 2.20 cm2 LVOT VTI 0.245 m AoV VTI 0.346 m LVOT Mean Grad 2.6 mmHg AoV Mean Maycol. 1.02 m/s LVOT SV 75.56 mL AoV Mean Grad 5.0 mmHg LVOT Diam s 1.95 cm AoV Area (VTI) 2.18 cm2 AV Regurg Peak Gr. 10.90 mmHg Velocity Ratio 0.72 Mitral Valve MV DT 255 (160-240 msec) MV Vmax TIPS 0.74 m/s MV Mean Grad 0.5 (<2mmHg) MV VTI 0.278 m Pulmonary Valve PV Vmax 1.06 (0.5-1.5 m/s) RVOT Vmax 0.85 m/s PV Peak Grad 4.5 mmHg RVOT Peak Gr. 2.9 mmHg PV Mean Maycol 0.75 m/s RVOT VTI 0.200 m PV Mean Grad 2.5 mmHg RVOT Mean Gr. 1.5 mmHg Tricuspid Valve RA Pressure 3.00 mmHg TR Vmax 2.59 m/s TV S' 0.18 m/s TR Peak Grad 26.8 mmHg RVSP (TR) 29.9 mmHg
[2025-05-10 06:52] LABS: Digoxin 1.25 ng/mL (0.80-2.00)
[2025-05-10 06:54] LABS: Anion Gap 7 mmol/L (3-11); BUN 17 mg/dL (9-23); CO2 29.0 mmol/L (20.0-31.0); Calcium 8.8 mg/dL (8.3-10.6); Chloride 110 mmol/L (98-107); Glucose 83 mg/dL (74-106); Potassium 3.8 mmol/L (3.5-5.1); Sodium 146 mmol/L (136-145)
[2025-05-10] MEDS: Atenolol 25 MG TAB PO (07:14)
[2025-05-10] MEDS: Cholecalciferol (Vitamin D3) 1,000 UNIT TAB 2000 UNITS PO (07:15)
[2025-05-10] MEDS: Normal Saline Flush 10 ML SYR IVP ×2 (07:15→09:05)
--- NOTE | 2025-05-10 08:19 | PDOC.CMDIS ---
Date of service: 05/10/25 Time of Service: 08:19 LACE Index Scoring Tool Questions: Length of Stay (in days): 2 Was the patient admitted via the E.D.?: Yes E.D. Visits: 1 Answers: Total Score: 6 Risk of Readmission: Low Risk Care Management Discharge Plan Reason for Hospitalization: Afib with RVR Discharge Plan: Rosaura is being discharged home via private vehicle with family. She will follow up with community providers and continue per her discharge plan of care. No new services are ordered on discharge. Patient/Family Education Needs: Review discharge instructions and plan to follow up after discharge. Discuss ask me three. SDOH Health Related Social Needs: Health related social needs house/econ circumstance Health related social needs details On workman's comp; has been informed of available resources if needed, none needed at this time. Health related social needs details: On workman's comp; has been informed of available resources if needed, none needed at this time.
[2025-05-10] MEDS: Digoxin 0.125 MG TAB PO (09:04)
--- NOTE | 2025-05-10 09:34 | W.NUTRFU ---
Date of service: 05/10/25 Time of Service: 09:35 Nutrition Note NOTE: Rosaura admitted into ICU for tx of COVID and Afib. Hx of Grave's disease. Weight history shows some mild weight loss since this last summer, but would assume this is more intentional, as we did discuss wt loss strategies in outpatient nutrition appt last Jan. Po intake fair to good per nursing. Slightly elevated sodium and chloride labs today. Ordered for regular diet. - kitchen attempts to get desired menu choices by calling d/t precations. PT ordered for 2,000IU vitamin D per home med list and hx of deficiency. Would suggest increase to 10,000IU per day of vitamin D while treating COVID, as well as 220mg zinc sulfate and 500mg Vitamin C BID. No acute nutrition dx at this time. Will continue to monitor intake, weight, nutrition-related labs. Time Spent in Nutritional Counseling and Treatment: 0
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
== END 2025-05-10 13:40 | disposition home or self-care (01) | DRG 308 ==
LOC: ER 19:32 → ICU 23:04
PROVIDERS: Emergency Medicine; Admitting Provider Hospitalist; Emergency Provider General Practice; Responsible Provider Family Medicine; Visit Provider Hospitalist
DX: I48.0 Paroxysmal atrial fibrillation (principal); U07.1 COVID-19; E78.5 Hyperlipidemia, unspecified; G47.00 Insomnia, unspecified; M77.12 Lateral epicondylitis, left elbow; M77.11 Lateral epicondylitis, right elbow; E03.8 Other specified hypothyroidism; G47.33 Obstructive sleep apnea (adult) (pediatric); E55.9 Vitamin D deficiency, unspecified; G25.81 Restless legs syndrome; F32.A Depression, unspecified; I47.10 Supraventricular tachycardia, unspecified; N18.9 Chronic kidney disease, unspecified; Z80.0 Family history of malignant neoplasm of digestive organs; Z86.39 Personal history of other endocrine, nutritional and metabolic disease; Z59.9 Problem related to housing and economic circumstances, unspecified
CPT/HCPCS: 00123; 36415; 80048; 80053; 87637; 93005; 96361; 96374; 96376; 99285; J1650; 80162; 83735; 84439; 84443; 85025; 93010; 93306; 99222; 99238; J1160

== ENCOUNTER 2025-05-16 11:53 | Outpatient (CLI) | payer SELFPAY ==
[2025-05-16 10:25] LABS: Digoxin 0.64 ng/mL (0.80-2.00)
[2025-05-16 10:31] LABS: Anion Gap 8.6 mmol/L (3-11); BUN 12 mg/dL (9-23); CO2 25.4 mmol/L (20.0-31.0); Calcium 8.8 mg/dL (8.3-10.6); Chloride 112 mmol/L (98-107); Glucose 111 mg/dL (74-106); Potassium 3.8 mmol/L (3.5-5.1); Sodium 146 mmol/L (136-145)
== END 2025-05-16 11:54 | disposition home or self-care (01) ==
LOC: LBO 11:55
DX: I48.91 Unspecified atrial fibrillation (principal)
CPT/HCPCS: 36415; 80048; 80162